=== PATIENT | female | born 1930 | race Caucasian/White ===

== ENCOUNTER 2016-11-10 07:58 | Inpatient (IN) | payer MEDICARE, BC ==
[~2016-11-10 07:58] MED LIST: Diphtheria,Pertussis(Acell),Tetanus Vaccine 0.5 ML SDV inactive IM ONE; Ketamine 500 mg/10 ML MDV ONE; Lactated Ringers 1,000 ML IV SCH; Lactated Ringers 1,000 ML ONE; Lidocaine 1%/Sod Bicarbonate in NS 8.4% 1 ML Syringe IV PRN; Midazolam 1 MG/ML 2 ML SDV ONE; Ondansetron 4 MG/2 ML SDV IVPUSH PRN; Phenylephrine/Normal Saline 100 MCG/ML 10 ML Syringe ONE; Pneumococcal 13-Valent Conjugate Vaccine 0.5 ML Syringe IM ONE; Propofol 200 MG/20 ML SDV ONE; Sodium Chloride 0.9% 10 ML Syringe FLUSH PRN; ceFAZolin 1 GM Vial ONE; fentaNYL 100 MCG/2 ML SDV ONE
--- NOTE | 2016-11-10 08:36 | PCM.PREANE ---
Preanesthetic Assessment - Anesthesia/Transfusion/Family Hx Anesthesia History: Prior Anesthesia Without Reaction Type of Anesthesia Reaction: Unknown Family History of Anesthesia Reaction: No Transfusion History: No Prior Transfusion(s) - Review of Systems General: No Symptoms Pulmonary: No Symptoms Cardiovascular: No Symptoms (HTN, mod aortic stenosis valve area 1.07cm2 ) Gastrointestinal: Abdominal pain (intermittent for the last 2 years but "they cant find anything". "Its more of an itch than anything") Neurological: Syncope (last episode was 5-6 years ago due to blood pressure variations ) Other: Reports: Easy Bleeding - Physical Assessment NPO Status Date: 11/09/16 NPO Status Time: 23:00 Pulse: 73 O2 Sat by Pulse Oximetry: 98 Respiratory Rate: 16 Blood Pressure: 181/85 Temperature: 36.8 C Height: 1.57 m Weight: 62.142 kg ASA Class: 3 Mental Status: Alert & Oriented x3 Airway Class: Mallampati = 3 Dentition: Reports: Normal Dentition (pt has a removable retainer, has TMJ, hx of broken jaw ) Thyro-Mental Finger Breadths: 3 Mouth Opening Finger Breadths: 2 ROM/Head Extension: Full Lungs: Clear to auscultation, Normal respiratory effort Cardiovascular: Regular Rate, Regular Rhythm, Murmurs - Lab Values: Laboratory Last Values MRSA (PCR) Negative 10/24/16 11:25 - Allergies Allergies/Adverse Reactions: Allergies Allergy/AdvReac Type Severity Reaction Status Date / Time No Known Allergies Allergy Verified 11/06/16 15:14 - Blood Blood Available: No Product(s) Available: None - Anesthesia Plan Pre-Op Medication Ordered: None - Acknowledgements Anesthesia Type Planned: Spinal (with duramorph discussed ) Pt an Appropriate Candidate for the Planned Anesthesia: Yes Alternatives and Risks of Anesthesia Discussed w Pt/Guardian: Yes Pt/Guardian Understands and Agrees with Anesthesia Plan: Yes PreAnesthesia Questionnaire HEENT History: Reports: Impaired vision, Other (see below) Other HEENT History: wears glasses Cardiovascular History: Reports: Heart murmur (mod aortic stenosis- valve area 1.07cm2), Hypertension Other Cardiovascular History: aortic stenosis Respiratory History: Reports: Other (see below) Other Respiratory History: shortness of breath with activity Genitourinary History: Reports: Other (see below) Other Genitourinary History: urgency SR. MEDIA MANAGER History: Reports: None Musculoskeletal History: Reports: Osteoarthritis Neurological History: Reports: None Psychiatric History: Reports: None Endocrine/Metabolic History: Reports: None Hematologic History: Reports: None Immunologic History: Reports: None Oncologic (Cancer) History: Reports: None Dermatologic History: Reports: None - Past Surgical History Head Surgeries/Procedures: Reports: None HEENT Surgical History: Reports: Other (see below) Other HEENT Surgeries/Procedures: mandible fracture with jaw surgery GI Surgical History: Reports: Colonoscopy, EGD Musculoskeletal Surgical History: Reports: Other (see below) Other Musculoskeletal Surgeries/Procedures:: mandible fracture with surgery - SUBSTANCE USE Smoking Status *Q: Never Smoker Second Hand Smoke Exposure: No Recreational Drug Use History: No - HOME MEDS Home Medications: Home Meds Ascorbate Calcium [Vitamin C] 500 mg PO DAILY 11/06/16 [History] Aspirin 81 mg PO DAILY 11/06/16 [History] Calcium Carbonate/Vitamin D3 [Calcium 500 + Vit D Caplet] 1 tab PO DAILY [History] Flaxseed Oil 1,000 mg PO DAILY 11/06/16 [History] Gluc 2KCl/Chondr/Kassy Hy/Hy Ac [Glucosamine & Chondroitin Cap] 1 cap PO DAILY [History] Losartan [Cozaar] 25 mg PO DAILY 11/06/16 [History] Melatonin 3 mg PO BEDTIME PRN 11/06/16 [History] Multivitamin [Multi-Vitamin Daily] 1 tab PO DAILY 11/06/16 [History] Vit C/Vit E Ac/Lut/Mineral 1 [Prosight with Lutein] 1 cap PO DAILY 11/06/16 [ History] Vitamin E 400 mg PO DAILY 11/06/16 [History] - CURRENT (IN HOUSE) MEDS Current Meds: Current Medications Hydrocodone Bitart/Acetaminophen ([place] 325-5 Mg) 1 - 2 tab PO Q4H PRN PRN Reason: Pain Aspirin (Ecotrin) 325 mg PO BID [facility] Bisacodyl (Dulcolax) 5 mg PO DAILY PRN PRN Reason: Constipation Morphine Sulfate 8 mg/Epinephrine HCl 0.3 mg/Cefuroxime Sodium 750 mg/Ketorolac Tromethamine 30 mg/Sodium Chloride 27.9 ml 0 mg .XX ONETIME ONE Stop: 11/10/16 10:01 Docusate Sodium (Colace) 100 mg PO BID [facility] Lactated Ringer's (Ringers, Lactated) 1,000 mls @ 125 mls/hr IV ASDIRECTED [facility] Cefazolin Sodium/Dextrose 2 gm (/ Premix) 50 mls @ 100 mls/hr IV Q8H [facility] Stop: 11/11/16 08:29 Lidocaine/Sodium Bicarbonate (Buffered Lidocaine 1% In Ns 8.4%) 0.25 ml IV ONETIME PRN PRN Reason: Prior to IV Start Stop: 11/10/16 16:00 Magnesium Hydroxide (Milk Of Magnesia) 30 ml PO BID PRN PRN Reason: Constipation Morphine Sulfate (Morphine) 1 mg IVPUSH Q2H PRN PRN Reason: Breakthrough pain Multivitamins (Thera) 1 each PO WITHBREAKFAST [facility] Naloxone HCl (Narcan) 0.1 mg IVPUSH Q5M PRN PRN Reason: Oversedation Stop: 11/10/16 12:16 Ondansetron HCl (Zofran) 4 mg IVPUSH Q6H PRN PRN Reason: Nausea/Vomiting Senna (Senna) 8.6 mg PO BID PRN PRN Reason: Constipation Sodium Chloride (Saline Flush) 10 ml FLUSH ASDIRECTED PRN PRN Reason: Keep Vein Open Discontinued Medications Cefazolin Sodium (Ancef) Confirm Administered Dose 2 gm .ROUTE .STK-MED ONE Stop: 11/10/16 07:52 Diphtheria/Tetanus/Acell Pertussis (Boostrix) 0.5 ml IM .ONCE ONE Stop: 11/09/16 12:20 Fentanyl (Sublimaze) Confirm Administered Dose 100 mcg .ROUTE .STK-MED ONE Stop: 11/10/16 07:54 Lidocaine HCl (Xylocaine-Mpf 1%) Confirm Administered Dose 10 mls @ as directed .ROUTE .STK-MED ONE Stop: 11/10/16 07:52 Lactated Ringer's (Ringers, Lactated) Confirm Administered Dose 1,000 mls @ as directed .ROUTE .STK-MED ONE Stop: 11/10/16 07:52 Ketamine HCl (Ketalar) Confirm Administered Dose 500 mg .ROUTE .STK-MED ONE Stop: 11/10/16 07:54 Midazolam HCl (Versed 1 Mg/Ml) Confirm Administered Dose 2 mg .ROUTE .STK-MED ONE Stop: 11/10/16 07:54 Phenylephrine HCl (Phenylephrine In Ns 100 Mcg/Ml) Confirm Administered Dose 1 mg .ROUTE .STK-MED ONE Stop: 11/10/16 07:52 Pneumococcal 13-Valent Conj Vacc (Prevnar 13) 0.5 ml IM .ONCE ONE Stop: 11/09/16 12:21 Propofol (Diprivan 20 Ml) Confirm Administered Dose 400 mg .ROUTE .STK-MED ONE Stop: 11/10/16 07:52
[2016-11-10] MEDS ORDERED: Ondansetron 4 MG/2 ML SDV IVPUSH PRN (10:34)
[2016-11-10] MEDS ORDERED: ePHEDrine 50 MG/ML SDV IVPUSH PRN (10:34)
[2016-11-10] MEDS: Iodine/Sodium Iodide 2% Tincture 30 ML Bottle ONE ×2 (10:36→11:03)
[2016-11-10] MEDS: ceFAZolin 1 GM Vial ONE ×2 (10:36→11:05)
[2016-11-10] MEDS: Bupivacaine 0.25% 30 ML SDV ONE ×2 (10:37→11:10)
[2016-11-10] MEDS: Morphine 8 MG, EPINEPHrine 0.3 MG, Cefuroxime 750 MG, Ketorolac 30 MG, Sodium Chloride ... ONE ×15 (10:37→17:00)
[2016-11-10] MEDS ORDERED: Phenylephrine 1 MG in Sodium Chloride 0.9% 10 ML IV SCH (10:45)
[2016-11-10] MEDS ORDERED: ePHEDrine/Normal Saline 25 MG/5 ML Syringe ONE (11:13)
[2016-11-10] MEDS ORDERED: fentaNYL 100 MCG/2 ML SDV IVPUSH PRN (11:40)
[2016-11-10] MEDS ORDERED: HYDROmorphone 0.5 MG/0.5 ML Syringe IVPUSH PRN (11:40)
--- NOTE | 2016-11-10 11:56 | PCM.POSTAN ---
POST ANESTHESIA ASSESSMENT - MENTAL STATUS Mental Status: alert - VITAL SIGNS Pulse Rate: 80 SaO2: 97 Resp Rate: 14 Blood Pressure: 146/57 Temperature: 36.9 C - RESPIRATORY Respiratory Status: respiratory rate WNL, airway patent, O2 saturation stable, supplemental oxygen - CARDIOVASCULAR CV Status: pulse rate WNL, blood pressure stable - GASTROINTESTINAL GI Status: no symptoms - POST OP HYDRATION Hydration Status: adequate & stable
[2016-11-10] MEDS ORDERED: Morphine 2 MG/ML Syringe IVPUSH PRN (12:00)
[2016-11-10] MEDS ORDERED: Naloxone 0.4 MG/ML SDV IVPUSH PRN (12:00)
--- NOTE | 2016-11-10 12:49 | CR ---
Left knee: AP and lateral views of left knee were obtained. Comparison: No previous knee surgery. Knee prosthesis is identified. Components are aligned. Air noted within joints and soft tissues compatible with surgical procedure. Vascular calcification is noted. Underlying bony structures are intact. Impression: 1. Satisfactory radiographic appearance of recently placed left knee prosthesis. Diagnostic code #2
--- NOTE | 2016-11-10 14:05 | PCM.OPNOTE ---
- General Post-Op/Procedure Note Date of Surgery/Procedure: 11/10/16 Operative Procedure(s): left total knee arthroplasty Pre Op Diagnosis: left knee osteoarthrosis Post-Op Diagnosis: Same Anesthesia Technique: Local, MAC, Spinal Primary Surgeon: Leif Serra Anesthesia Provider: Fab Le Flooring Salesperson: July Copeland Flooring Salesperson: Carolyn Maldonado EBL in mLs: 200 Complications: None Condition: Good Free Text/Narrative:: Intake & Output 11/09/16 11/10/16 11/10/16 22:59 06:59 14:59 Intake Total 40 Output Total 850 Balance -810 5 femur 4 tibia 9mm 29x9
[2016-11-10] MEDS ORDERED: Scopolamine 1.5 MG Transdermal Patch TRDERM SCH (15:00)
[2016-11-10] MEDS: ceFAZolin 2 GM in Premix Bag 1 BAG IV SCH ×2 (16:03→23:08)
[2016-11-10] MEDS: Prochlorperazine 10 MG/2 ML SDV IVPUSH SCH ×2 (16:04→20:15)
--- NOTE | 2016-11-10 16:35 | PCM.CONSN ---
[id number] had osteoarthritis which has limited her function is s/p left total knee arthroplasty. PMH includes moderate-severe , hypertension, COPD. Post op she has had nausea with vomiting. Functional Status: Reports: pain controlled, tolerating diet (minimal, has had frequent emesis), urinating - Review of Systems General: Reports: No Symptoms HEENT: Reports: no symptoms Pulmonary: Reports: no symptoms Cardiovascular: Reports: No Symptoms Gastrointestinal: Reports: No symptoms Genitourinary: Reports: no symptoms Musculoskeletal: Reports: no symptoms Skin: Reports: no symptoms Neurological: Reports: No Symptoms Psychiatric: Reports: no symptoms - Patient Data Vitals - most recent: Last Vital Signs Temp 36.7 C 11/10/16 12:11 Pulse 61 11/10/16 12:55 Resp 13 11/10/16 12:55 BP 141/56 H 11/10/16 12:55 Pulse Ox 93 L 11/10/16 13:25 Weight - most recent: 64.41 kg I&O - last 24 hours: Intake & Output 11/10/16 11/10/16 11/10/16 06:59 14:59 22:59 Intake Total 40 Output Total 850 Balance -810 Med Orders - Current: Current Medications Hydrocodone Bitart/Acetaminophen ([place] 325-5 Mg) 1 - 2 tab PO Q4H PRN PRN Reason: Pain Aspirin (Ecotrin) 325 mg PO BID [facility] Bisacodyl (Dulcolax) 5 mg PO DAILY PRN PRN Reason: Constipation Calcium Carbonate (Calcium Carbonate/Vitamin D 1500 Mg-200 Unit) 1 tab PO DAILY [facility] Docusate Sodium (Colace) 100 mg PO BID [facility] Cefazolin Sodium/Dextrose 2 gm (/ Premix) 50 mls @ 100 mls/hr IV Q8H [facility] Stop: 11/11/16 08:29 Last Admin: 11/10/16 16:03 Dose: 100 mls/hr Losartan Potassium (Cozaar) 25 mg PO DAILY [facility] Magnesium Hydroxide (Milk Of Magnesia) 30 ml PO BID PRN PRN Reason: Constipation Miscellaneous Information (Remove Patch) 0 ea TRDERM Q72H [facility] Morphine Sulfate (Morphine) 1 mg IVPUSH Q2H PRN PRN Reason: Breakthrough pain Multivitamins (Thera) 1 each PO WITHBREAKFAST [facility] Ondansetron HCl (Zofran) 4 mg IVPUSH Q6H PRN PRN Reason: Nausea/Vomiting Last Admin: 11/10/16 13:35 Dose: 4 mg Ondansetron HCl (Zofran) 4 mg IVPUSH ONETIME PRN PRN Reason: Nausea/Vomiting Stop: 11/10/16 18:00 Melatonin 3 Mg 0 each PO BEDTIME PRN PRN Reason: Insomnia Prochlorperazine Edisylate (Compazine) 5 mg IVPUSH Q6H [facility] Last Admin: 11/10/16 16:04 Dose: 5 mg Scopolamine (Transderm-Scop) 1.5 mg TRDERM Q72H [facility] Last Admin: 11/10/16 16:05 Dose: 1.5 mg Senna (Senna) 8.6 mg PO BID PRN PRN Reason: Constipation Sodium Chloride (Saline Flush) 10 ml FLUSH ASDIRECTED PRN PRN Reason: Keep Vein Open Discontinued Medications Bupivacaine HCl (Marcaine 0.25%) Confirm Administered Dose 30 ml .ROUTE .STK- MED ONE Stop: 11/10/16 08:22 Last Admin: 11/10/16 11:10 Dose: 30 ml Cefazolin Sodium (Ancef) Confirm Administered Dose 2 gm .ROUTE .STK-MED ONE Stop: 11/10/16 07:52 Cefazolin Sodium (Ancef) Confirm Administered Dose 2 gm .ROUTE .STK-MED ONE Stop: 11/10/16 08:22 Last Admin: 11/10/16 11:05 Dose: 2 gm Morphine Sulfate 8 mg/Epinephrine HCl 0.3 mg/Cefuroxime Sodium 750 mg/Ketorolac Tromethamine 30 mg/Sodium Chloride 27.9 ml 0 mg .XX ONETIME ONE Stop: 11/10/16 10:01 Last Admin: 11/10/16 11:09 Dose: 788.3 mg Diphtheria/Tetanus/Acell Pertussis (Boostrix) 0.5 ml IM .ONCE ONE Stop: 11/09/16 12:20 Ephedrine Sulfate (Ephedrine Sulfate) 5 mg IVPUSH ASDIRECTED PRN PRN Reason: Hypotension Stop: 11/10/16 18:00 Ephedrine Sulfate (Ephedrine In Ns) Confirm Administered Dose 25 mg .ROUTE .STK- MED ONE Stop: 11/10/16 11:14 Fentanyl (Sublimaze) Confirm Administered Dose 100 mcg .ROUTE .STK-MED ONE Stop: 11/10/16 07:54 Fentanyl (Sublimaze) 50 mcg IVPUSH Q5M PRN PRN Reason: Pain Stop: 11/10/16 11:56 Hydromorphone HCl (Dilaudid) 0.5 mg IVPUSH Q15M PRN PRN Reason: severe pain Stop: 11/10/16 11:56 Last Admin: 11/10/16 12:56 Dose: 0.5 mg Lactated Ringer's (Ringers, Lactated) 1,000 mls @ 125 mls/hr IV ASDIRECTED [facility] Last Admin: 11/10/16 08:50 Dose: 125 mls/hr Lidocaine HCl (Xylocaine-Mpf 1%) Confirm Administered Dose 10 mls @ as directed .ROUTE .STK-MED ONE Stop: 11/10/16 07:52 Lactated Ringer's (Ringers, Lactated) Confirm Administered Dose 1,000 mls @ as directed .ROUTE .STK-MED ONE Stop: 11/10/16 07:52 Phenylephrine HCl 1 mg/ Sodium (Chloride) 10.1 mls @ 1 mls/sec IV TITRATE [facility] Stop: 11/10/16 18:00 Iodine (Iodine 2% Mild Tincture) Confirm Administered Dose 30 ml .ROUTE .STK- MED ONE Stop: 11/10/16 08:22 Last Admin: 11/10/16 11:03 Dose: 18 ml Ketamine HCl (Ketalar) Confirm Administered Dose 500 mg .ROUTE .STK-MED ONE Stop: 11/10/16 07:54 Lidocaine/Sodium Bicarbonate (Buffered Lidocaine 1% In Ns 8.4%) 0.25 ml IV ONETIME PRN PRN Reason: Prior to IV Start Stop: 11/10/16 16:00 Last Admin: 11/10/16 08:49 Dose: 0.25 ml Midazolam HCl (Versed 1 Mg/Ml) Confirm Administered Dose 2 mg .ROUTE .STK-MED ONE Stop: 11/10/16 07:54 Naloxone HCl (Narcan) 0.1 mg IVPUSH Q5M PRN PRN Reason: Oversedation Stop: 11/10/16 12:16 Phenylephrine HCl (Phenylephrine In Ns 100 Mcg/Ml) Confirm Administered Dose 1 mg .ROUTE .STK-MED ONE Stop: 11/10/16 07:52 Pneumococcal 13-Valent Conj Vacc (Prevnar 13) 0.5 ml IM .ONCE ONE Stop: 11/09/16 12:21 Propofol (Diprivan 20 Ml) Confirm Administered Dose 400 mg .ROUTE .STK-MED ONE Stop: 11/10/16 07:52 Tranexamic Acid (Cyklokapron) Confirm Administered Dose 1,000 mg .ROUTE .STK- MED ONE Stop: 11/10/16 08:22 Last Admin: 11/10/16 11:14 Dose: 1,000 mg - Exam Quality Assessment: urine catheter, DVT prophylaxis General: alert, oriented, cooperative, no acute distress HEENT: Pupils equal, Pupils reactive, EOMI Neck: supple, trachea midline Lungs: Normal respiratory effort Cardiovascular: Regular Rate, Regular Rhythm, Murmurs (ANASTASIYA) Abdomen: bowel sounds present, soft, no tenderness, no distension (Female) Exam: Deferred Back Exam: normal inspection Extremities: normal pulses Skin: warm Wound/Incisions: dressing dry and intact Neurological: no new focal deficit Psy/Mental Status: alert Consult PN Assessment/Plan POD#: 0 Procedures: Procedures COMPLETE CBC W/AUTO DIFF WBC (08/08/15) COMPREHEN METABOLIC PANEL (08/08/15) CT ABD & PELV W/CONTRAST (07/13/15) ECG MONIT/REPRT UP TO 48 HRS (09/04/15) ECG MONIT/REPRT UP TO 48 HRS (09/04/15) ELECTROCARDIOGRAM TRACING (08/08/15) EMERGENCY DEPT VISIT (08/08/15) ROUTINE VENIPUNCTURE (08/08/15) Problem List Initiated/Reviewed/Updated: Yes My Orders last 24 hours: My Active Orders 11/10/16 15:00 Prochlorperazine [Compazine] 5 mg IVPUSH Q6H Scopolamine [Transderm-Scop] 1.5 mg TRDERM Q72H 11/13/16 15:00 Remove Patch 0 ea TRDERM Q72H Plan: Impression: Post op Left TKA History of OA Chronic HTN Plan: Pain mgt per Ortho DVT prophylaxis per Ortho Antiemetic Clear Liquids Resume home meds PT/OT post op care
[2016-11-10] MEDS ORDERED: Sodium Chloride 0.9% 1,000 ML IV SCH (17:00)
[2016-11-10] MEDS: Docusate Sodium 100 MG Cap PO SCH (20:16)
[2016-11-10] MEDS: Acetaminophen/HYDROcodone 325-5 MG Tab PO PRN ×2 (20:16→23:08)
[2016-11-10] MEDS ORDERED: Magnesium Hydroxide 400 MG/5 ML Susp 30 ML Cup PO PRN (21:00)
[2016-11-10] MEDS ORDERED: Sennosides 8.6 MG Tab PO PRN (21:00)
--- NOTE | 2016-11-10 21:18 | OR ---
DATE OF OPERATION: 11/10/2016 SURGEON: Leif Serra MD OPERATION PERFORMED: Left total knee arthroplasty. PREOPERATIVE DIAGNOSIS: Left knee osteoarthrosis. POSTOPERATIVE DIAGNOSIS: Left knee osteoarthrosis. ANESTHESIA: Local MAC with spinal. ANESTHESIA PROVIDER: Fab Le. LEAD SYSTEMS ENGINEER: July Copeland PA-C and Carolyn Maldonado M.D. ESTIMATED BLOOD LOSS: 200 mL COMPLICATIONS: None. CONDITION: Stable. IMPLANTS: 1. [place] size 5 PS femur. 2. Rl size 4 universal tibial baseplate. 3. [place] size 4 9 mm X3 PS polyethylene. 4. Rl 29 x 9 mm asymmetric patella. DESCRIPTION OF PROCEDURE: The patient was identified in the preop holding area. Proper site was marked and identified by the surgeon. The patient was taken back to the operating theater. After adequate anesthesia, the patient's left lower extremity had a nonsterile tourniquet applied and it was then sterilely prepped and draped in the usual sterile fashion. OR timeout was performed. The patient received 2 g IV Ancef. At this time, left lower extremity was exsanguinated. Tourniquet was insufflated to 300 mmHg. Standard medial parapatellar incision was made. Medial parapatellar arthrotomy was created. Deep fibers of the MCL were raised and anterior fat pad was resected. At this time, attention was turned to the patella. Patella measured 23, it was resected to a 14 for a 29 x 9 mm patella. Drill holes were then drilled and found to be in adequate position. The drill was then drilled in the distal femur and the intramedullary distal femoral cutting guide was then placed. 8 mm was resected off the distal femur and was found to be an adequate resection. Sizing guide was placed. It was found to be a size femur that was shown on the implant record at the beginning of this dictation. The drill holes were drilled for the epicondylar axis using [place] line and epicondyles as reference. At this time, the 4-in-1 cutting block was placed. An anterior posterior and anterior and posterior chamfer cuts were then completed. The correct size box cut was then placed and the box cut was completed and found to be an adequate resection. Attention was turned to the tibia. The posterior medial lateral retractors were placed. The extramedullary tibial guide was placed. It was placed in the old footprint of the ACL. It was aligned with the center of the ankle and 0 degrees of slope, 9 mm was then resected off the unaffected lateral side. There was found to be an acceptable reduction. At this time, posterior osteophytes were removed along with medial and lateral meniscus. A trial implant was placed with a correct sized tibia that was mentioned at the beginning of the dictation. A 9 mm polyethylene was then placed. The patient's knee was brought through range of motion. The patella was tracking centrally and was stable to varus and valgus stress. Alignment was found to be roughly at 0 degrees. At this time, cement was mixed on the back table. The tibia was stamped and drilled in proper rotation. All cut surfaces were irrigated with pulse lavage irrigation with Ancef and then completely dried. Once this was completed, then the cement was ready. The universal tibial base plate was cemented in place. Next, the femur cemented into place and the polyethylene was placed. The patient's knee was brought into full extension. Excess cement was removed. The patella was then cemented in place at this time. Tourniquet was deflated. One liter dilute Betadine solution was irrigated through the knee along with 3 L of pulse lavage irrigation with Ancef. Periarticular injection was then completed. The patient's knee was brought through a range of motion. Once the cement had time to set up and it was found to be stable to varus valgus stress, the patella was tracking centrally with full range of motion. At this time, a #2 barbed suture was used for closure of the medial parapatellar arthrotomy. Topical tranexamic acid was placed. 2-0 Vicryl was used subcutaneously, a running 3-0 Monocryl was used subcuticularly. The patient tolerated the procedure well and was sent to the PACU in stable condition. A 9 mm trial spacer was placed and 9 mm X3 polyethylene was placed. OSCAR /[id number]
[2016-11-11] MEDS: Prochlorperazine 10 MG/2 ML SDV IVPUSH SCH ×3 (02:31→14:18)
[2016-11-11] MEDS: Acetaminophen/HYDROcodone 325-5 MG Tab PO PRN ×2 (06:13→16:56)
[2016-11-11] MEDS: Multivitamins,Therapeutic Tab PO SCH (06:13)
--- NOTE | 2016-11-11 06:22 | PCM.CONSN ---
[id number] Admission Dx/Problem (Free Text): S/P Lt TKA with Dr. Serra; POD #1 Episode of hypotension wtih standing earlier this am; b/p to 70's/30's- nursing phoned me; orders given. Now patient doing better, b/p back up to 130's/60's; still feels dizzy. Reviewed with nursing and family POC for the day- PT will be updated on episode. Denies CP, SOB with this. N/V yesterday improved today; did have mild nausea with hypotension as discussed above, resolved now. Pain under fair to good control now Hgb WNL; other labs WNL this am. Functional Status: Reports: pain controlled, tolerating diet, ambulating, urinating (baker cath to be dc'd early this am). Denies: new symptoms - Review of Systems General: Reports: No Symptoms HEENT: Reports: no symptoms Pulmonary: Reports: no symptoms Cardiovascular: Reports: Lightheadedness, Other (hypotensive episode) Gastrointestinal: Reports: No symptoms Genitourinary: Reports: no symptoms Musculoskeletal: Reports: leg pain Skin: Reports: no symptoms Neurological: Reports: No Symptoms Psychiatric: Reports: no symptoms - Patient Data Vitals - most recent: Last Vital Signs Temp 97.7 F 11/11/16 02:02 Pulse 61 11/11/16 02:02 Resp 16 11/11/16 02:02 BP 157/50 H 11/11/16 02:02 Pulse Ox 97 11/11/16 02:02 Weight - most recent: 69.672 kg I&O - last 24 hours: Intake & Output 11/10/16 11/10/16 11/11/16 14:59 22:59 06:59 Intake Total 40 300 350 Output Total 850 50 250 Balance -810 250 100 Med Orders - Current: Current Medications Hydrocodone Bitart/Acetaminophen ([place] 325-5 Mg) 1 - 2 tab PO Q4H PRN PRN Reason: Pain Last Admin: 11/11/16 06:13 Dose: 2 tab Aspirin (Ecotrin) 325 mg PO BID [facility] Bisacodyl (Dulcolax) 5 mg PO DAILY PRN PRN Reason: Constipation Calcium Carbonate (Calcium Carbonate/Vitamin D 1500 Mg-200 Unit) 1 tab PO DAILY [facility] Docusate Sodium (Colace) 100 mg PO BID EMMA Last Admin: 11/10/16 20:16 Dose: 100 mg Cefazolin Sodium/Dextrose 2 gm (/ Premix) 50 mls @ 100 mls/hr IV Q8H [facility] Stop: 11/11/16 08:29 Last Admin: 11/10/16 23:08 Dose: 100 mls/hr Losartan Potassium (Cozaar) 25 mg PO DAILY [facility] Magnesium Hydroxide (Milk Of Magnesia) 30 ml PO BID PRN PRN Reason: Constipation Miscellaneous Information (Remove Patch) 0 ea TRDERM Q72H [facility] Morphine Sulfate (Morphine) 1 mg IVPUSH Q2H PRN PRN Reason: Breakthrough pain Multivitamins (Thera) 1 each PO WITHBREAKFAST [facility] Last Admin: 11/11/16 06:13 Dose: 1 each Ondansetron HCl (Zofran) 4 mg IVPUSH Q6H PRN PRN Reason: Nausea/Vomiting Last Admin: 11/10/16 13:35 Dose: 4 mg Melatonin 3 Mg 0 each PO BEDTIME PRN PRN Reason: Insomnia Prochlorperazine Edisylate (Compazine) 5 mg IVPUSH Q6H [facility] Last Admin: 11/11/16 02:31 Dose: 5 mg Scopolamine (Transderm-Scop) 1.5 mg TRDERM Q72H [facility] Last Admin: 11/10/16 16:05 Dose: 1.5 mg Senna (Senna) 8.6 mg PO BID PRN PRN Reason: Constipation Sodium Chloride (Saline Flush) 10 ml FLUSH ASDIRECTED PRN PRN Reason: Keep Vein Open Discontinued Medications Bupivacaine HCl (Marcaine 0.25%) Confirm Administered Dose 30 ml .ROUTE .STK- MED ONE Stop: 11/10/16 08:22 Last Admin: 11/10/16 11:10 Dose: 30 ml Cefazolin Sodium (Ancef) Confirm Administered Dose 2 gm .ROUTE .STK-MED ONE Stop: 11/10/16 07:52 Cefazolin Sodium (Ancef) Confirm Administered Dose 2 gm .ROUTE .STK-MED ONE Stop: 11/10/16 08:22 Last Admin: 11/10/16 11:05 Dose: 2 gm Morphine Sulfate 8 mg/Epinephrine HCl 0.3 mg/Cefuroxime Sodium 750 mg/Ketorolac Tromethamine 30 mg/Sodium Chloride 27.9 ml 0 mg .XX ONETIME ONE Stop: 11/10/16 10:01 Last Admin: 11/10/16 17:00 Dose: Not Given Diphtheria/Tetanus/Acell Pertussis (Boostrix) 0.5 ml IM .ONCE ONE Stop: 11/09/16 12:20 Ephedrine Sulfate (Ephedrine Sulfate) 5 mg IVPUSH ASDIRECTED PRN PRN Reason: Hypotension Stop: 11/10/16 18:00 Ephedrine Sulfate (Ephedrine In Ns) Confirm Administered Dose 25 mg .ROUTE .STK- MED ONE Stop: 11/10/16 11:14 Fentanyl (Sublimaze) Confirm Administered Dose 100 mcg .ROUTE .STK-MED ONE Stop: 11/10/16 07:54 Fentanyl (Sublimaze) 50 mcg IVPUSH Q5M PRN PRN Reason: Pain Stop: 11/10/16 11:56 Hydromorphone HCl (Dilaudid) 0.5 mg IVPUSH Q15M PRN PRN Reason: severe pain Stop: 11/10/16 11:56 Last Admin: 11/10/16 12:56 Dose: 0.5 mg Lactated Ringer's (Ringers, Lactated) 1,000 mls @ 125 mls/hr IV ASDIRECTED [facility] Last Admin: 11/10/16 08:50 Dose: 125 mls/hr Lidocaine HCl (Xylocaine-Mpf 1%) Confirm Administered Dose 10 mls @ as directed .ROUTE .STK-MED ONE Stop: 11/10/16 07:52 Lactated Ringer's (Ringers, Lactated) Confirm Administered Dose 1,000 mls @ as directed .ROUTE .STK-MED ONE Stop: 11/10/16 07:52 Phenylephrine HCl 1 mg/ Sodium (Chloride) 10.1 mls @ 1 mls/sec IV TITRATE [facility] Stop: 11/10/16 18:00 Sodium Chloride (Normal Saline) 1,000 mls @ 50 mls/hr IV ASDIRECTED [facility] Stop: 11/10/16 23:00 Last Admin: 11/10/16 17:13 Dose: 50 mls/hr Iodine (Iodine 2% Mild Tincture) Confirm Administered Dose 30 ml .ROUTE .STK- MED ONE Stop: 11/10/16 08:22 Last Admin: 11/10/16 11:03 Dose: 18 ml Ketamine HCl (Ketalar) Confirm Administered Dose 500 mg .ROUTE .STK-MED ONE Stop: 11/10/16 07:54 Lidocaine/Sodium Bicarbonate (Buffered Lidocaine 1% In Ns 8.4%) 0.25 ml IV ONETIME PRN PRN Reason: Prior to IV Start Stop: 11/10/16 16:00 Last Admin: 11/10/16 08:49 Dose: 0.25 ml Midazolam HCl (Versed 1 Mg/Ml) Confirm Administered Dose 2 mg .ROUTE .STK-MED ONE Stop: 11/10/16 07:54 Naloxone HCl (Narcan) 0.1 mg IVPUSH Q5M PRN PRN Reason: Oversedation Stop: 11/10/16 12:16 Ondansetron HCl (Zofran) 4 mg IVPUSH ONETIME PRN PRN Reason: Nausea/Vomiting Stop: 11/10/16 18:00 Phenylephrine HCl (Phenylephrine In Ns 100 Mcg/Ml) Confirm Administered Dose 1 mg .ROUTE .STK-MED ONE Stop: 11/10/16 07:52 Pneumococcal 13-Valent Conj Vacc (Prevnar 13) 0.5 ml IM .ONCE ONE Stop: 11/09/16 12:21 Propofol (Diprivan 20 Ml) Confirm Administered Dose 400 mg .ROUTE .STK-MED ONE Stop: 11/10/16 07:52 Tranexamic Acid (Cyklokapron) Confirm Administered Dose 1,000 mg .ROUTE .STK- MED ONE Stop: 11/10/16 08:22 Last Admin: 11/10/16 11:14 Dose: 1,000 mg - Exam Quality Assessment: supplemental oxygen, DVT prophylaxis General: alert, oriented, cooperative, no acute distress HEENT: Pupils equal, Pupils reactive, EOMI, Mucous membr. moist/pink Neck: supple Lungs: Clear to auscultation, Normal respiratory effort, Decreased breath sounds (to bases) Cardiovascular: Regular Rate, Regular Rhythm, Murmurs (grade 2-3 blowing systolic murmur) Abdomen: bowel sounds present, soft, no tenderness, no distension (Female) Exam: Deferred Extremities: no edema, other (teds, SCD's, ice to knee) Peripheral Pulses: 1+: dorsalis pedis (L), dorsalis pedis (R) Skin: warm, dry, intact Neurological: no new focal deficit Psy/Mental Status: alert, normal affect, normal mood Consult PN Assessment/Plan POD#: 1 Procedures: Procedures COMPLETE CBC W/AUTO DIFF WBC (08/08/15) COMPREHEN METABOLIC PANEL (08/08/15) CT ABD & PELV W/CONTRAST (07/13/15) ECG MONIT/REPRT UP TO 48 HRS (09/04/15) ECG MONIT/REPRT UP TO 48 HRS (09/04/15) ELECTROCARDIOGRAM TRACING (08/08/15) EMERGENCY DEPT VISIT (08/08/15) ROUTINE VENIPUNCTURE (08/08/15) (1) S/P total knee arthroplasty SNOMED Code(s): 1418665950147, 717563094, 7325221428389 Code(s): Z96.659 - PRESENCE OF UNSPECIFIED ARTIFICIAL KNEE JOINT Priority: High Current Visit: Yes Qualifiers: Laterality: left Qualified Code(s): Z96.652 - Presence of left artificial knee joint (2) Osteoarthritis SNOMED Code(s): 878422963 Code(s): M19.90 - UNSPECIFIED OSTEOARTHRITIS, UNSPECIFIED SITE Priority: High Current Visit: Yes Qualifiers: Osteoarthritis location: knee Osteoarthritis type: primary Laterality: left Qualified Code(s): M17.12 - Unilateral primary osteoarthritis, left knee (3) Aortic stenosis SNOMED Code(s): 58166283 Code(s): I35.0 - NONRHEUMATIC AORTIC (VALVE) STENOSIS Priority: High Current Visit: Yes Qualifiers: Cardiac valve disease etiology: etiology unspecified Qualified Code(s): I35.0 - Nonrheumatic aortic (valve) stenosis (4) HTN (hypertension) SNOMED Code(s): 76167115 Code(s): I10 - ESSENTIAL (PRIMARY) HYPERTENSION Priority: High Current Visit: Yes Qualifiers: Hypertension type: essential hypertension Qualified Code(s): I10 - Essential (primary) hypertension (5) Hypotensive episode SNOMED Code(s): 44010566 Code(s): I95.9 - HYPOTENSION, UNSPECIFIED Priority: High Current Visit: Yes Problem List Initiated/Reviewed/Updated: Yes Plan: S/P Rt TKA with Dr. Serra; POD #1 -Pain management and DVT prophylax per primary team/Ortho -PT/OT -Hgb this am 11.8 Hypotensive episode with dizziness/near syncope -250cc fluid bolus given -Close monitoring of b/p -Bed exercises only for PT this am, can attempt OOB this afternoon -Reviewed with Izabela Copeland PA-C with Ortho, decision made for patient to stay tonite, plan for dc tomorrow if no further hypotension Other chronic conditions: stable -HTN- B/P overnight had been elevated but acceptable, now with hypotension -Aortic stenosis; avoid fluid overload-- fluid bolus as above over 30 minutes Other: CM/SW for assist with DC planning Patient is Full Code Plan for DC tomorrow pending b/p's <LinJudith M - Last Filed: 11/11/16 19:50> - Patient Data Vitals - most recent: Last Vital Signs Temp 36.6 C 11/11/16 19:25 Pulse 70 11/11/16 19:25 Resp 16 11/11/16 19:25 BP 142/98 H 11/11/16 19:25 Pulse Ox 94 L 11/11/16 19:25 I&O - last 24 hours: Intake & Output 11/11/16 11/11/16 11/11/16 06:59 14:59 22:59 Intake Total 350 680 Output Total 250 410 Balance 100 270 Lab Results last 24 hrs: Laboratory Results - last 24 hr 11/11/16 11/11/16 Range/Units 06:20 06:20 WBC 6.08 (3.98-10.04) K/mm3 RBC 3.79 L (3.98-5.22) M/mm3 Hgb 11.8 (11.2-15.7) gm/L Hct 37.4 (34.1-44.9) % MCV 98.7 H (79.4-94.8) fl MCH 31.1 (25.6-32.2) pg MCHC 31.6 L (32.2-35.5) g/dl RDW Std Deviation 46.4 H (36.4-46.3) fL Plt Count 202 (182-369) K/mm3 MPV 11.2 (9.4-12.3) fl Neut % (Auto) 60.8 (34.0-71.1) % Lymph % (Auto) 27.6 (19.3-51.7) % Reagan % (Auto) 10.2 (4.7-12.5) % Eos % (Auto) 1.0 (0.7-5.8) Baso % (Auto) 0.2 (0.1-1.2) % Neut # (Auto) 3.70 (1.56-6.13) K/mm3 Lymph # (Auto) 1.68 (1.18-3.74) K/mm3 Reagan # (Auto) 0.62 H (0.24-0.36) K/mm3 Eos # (Auto) 0.06 (0.04-0.36) K/mm3 Baso # (Auto) 0.01 (0.01-0.08) K/mm3 Sodium 144 (136-145) mEq/L Potassium 4.7 (3.5-5.1) mEq/L Chloride 109 H (98-107) mEq/L Carbon Dioxide 31 (21-32) mEq/L Anion Gap 8.7 (5-15) BUN 17 (7-18) mg/dL Creatinine 1.0 (0.55-1.02) mg/dL Est Cr Clr Drug Dosing 33.41 mL/min Estimated GFR (MDRD) 53 (>60) mL/min BUN/Creatinine Ratio 17.0 (14-18) Glucose 99 (83-115) mg/dL Calcium 8.6 (8.5-10.1) mg/dL Total Bilirubin 0.5 (0.2-1.0) mg/dL AST 18 (15-37) U/L ALT 23 (14-59) U/L Alkaline Phosphatase 86 (46-116) U/L Total Protein 6.0 L (6.4-8.2) g/dl Albumin 2.9 L (3.4-5.0) g/dl Globulin 3.1 gm/dL Albumin/Globulin Ratio 0.9 L (1-2) Med Orders - Current: Current Medications Hydrocodone Bitart/Acetaminophen ([place] 325-5 Mg) 1 - 2 tab PO Q4H PRN PRN Reason: Pain Last Admin: 11/11/16 16:56 Dose: 2 tab Aspirin (Ecotrin) 325 mg PO BID [facility] Last Admin: 11/11/16 08:07 Dose: 325 mg Bisacodyl (Dulcolax) 5 mg PO DAILY PRN PRN Reason: Constipation Last Admin: 11/11/16 08:08 Dose: 5 mg Calcium Carbonate (Calcium Carbonate/Vitamin D 1500 Mg-200 Unit) 1 tab PO DAILY [facility] Last Admin: 11/11/16 08:08 Dose: 1 tab Docusate Sodium (Colace) 100 mg PO BID [facility] Last Admin: 11/11/16 08:08 Dose: 100 mg Losartan Potassium (Cozaar) 25 mg PO DAILY [facility] Last Admin: 11/11/16 08:08 Dose: 25 mg Magnesium Hydroxide (Milk Of Magnesia) 30 ml PO BID PRN PRN Reason: Constipation Miscellaneous Information (Remove Patch) 0 ea TRDERM Q72H [facility] Morphine Sulfate (Morphine) 1 mg IVPUSH Q2H PRN PRN Reason: Breakthrough pain Multivitamins (Thera) 1 each PO WITHBREAKFAST [facility] Last Admin: 11/11/16 06:13 Dose: 1 each Ondansetron HCl (Zofran) 4 mg IVPUSH Q6H PRN PRN Reason: Nausea/Vomiting Last Admin: 11/10/16 13:35 Dose: 4 mg Melatonin 3 Mg 0 each PO BEDTIME PRN PRN Reason: Insomnia Scopolamine (Transderm-Scop) 1.5 mg TRDERM Q72H [facility] Last Admin: 11/10/16 16:05 Dose: 1.5 mg Senna (Senna) 8.6 mg PO BID PRN PRN Reason: Constipation Sodium Chloride (Saline Flush) 10 ml FLUSH ASDIRECTED PRN PRN Reason: Keep Vein Open Discontinued Medications Bupivacaine HCl (Marcaine 0.25%) Confirm Administered Dose 30 ml .ROUTE .STK- MED ONE Stop: 11/10/16 08:22 Last Admin: 11/10/16 11:10 Dose: 30 ml Cefazolin Sodium (Ancef) Confirm Administered Dose 2 gm .ROUTE .STK-MED ONE Stop: 11/10/16 07:52 Cefazolin Sodium (Ancef) Confirm Administered Dose 2 gm .ROUTE .STK-MED ONE Stop: 11/10/16 08:22 Last Admin: 11/10/16 11:05 Dose: 2 gm Morphine Sulfate 8 mg/Epinephrine HCl 0.3 mg/Cefuroxime Sodium 750 mg/Ketorolac Tromethamine 30 mg/Sodium Chloride 27.9 ml 0 mg .XX ONETIME ONE Stop: 11/10/16 10:01 Last Admin: 11/10/16 17:00 Dose: Not Given Diphtheria/Tetanus/Acell Pertussis (Boostrix) 0.5 ml IM .ONCE ONE Stop: 11/09/16 12:20 Ephedrine Sulfate (Ephedrine Sulfate) 5 mg IVPUSH ASDIRECTED PRN PRN Reason: Hypotension Stop: 11/10/16 18:00 Ephedrine Sulfate (Ephedrine In Ns) Confirm Administered Dose 25 mg .ROUTE .STK- MED ONE Stop: 11/10/16 11:14 Fentanyl (Sublimaze) Confirm Administered Dose 100 mcg .ROUTE .STK-MED ONE Stop: 11/10/16 07:54 Fentanyl (Sublimaze) 50 mcg IVPUSH Q5M PRN PRN Reason: Pain Stop: 11/10/16 11:56 Hydromorphone HCl (Dilaudid) 0.5 mg IVPUSH Q15M PRN PRN Reason: severe pain Stop: 11/10/16 11:56 Last Admin: 11/10/16 12:56 Dose: 0.5 mg Lactated Ringer's (Ringers, Lactated) 1,000 mls @ 125 mls/hr IV ASDIRECTED [facility] Last Admin: 11/10/16 08:50 Dose: 125 mls/hr Cefazolin Sodium/Dextrose 2 gm (/ Premix) 50 mls @ 100 mls/hr IV Q8H [facility] Stop: 11/11/16 08:29 Last Admin: 11/11/16 08:07 Dose: 100 mls/hr Lidocaine HCl (Xylocaine-Mpf 1%) Confirm Administered Dose 10 mls @ as directed .ROUTE .STK-MED ONE Stop: 11/10/16 07:52 Lactated Ringer's (Ringers, Lactated) Confirm Administered Dose 1,000 mls @ as directed .ROUTE .STK-MED ONE Stop: 11/10/16 07:52 Phenylephrine HCl 1 mg/ Sodium (Chloride) 10.1 mls @ 1 mls/sec IV TITRATE [facility] Stop: 11/10/16 18:00 Sodium Chloride (Normal Saline) 1,000 mls @ 50 mls/hr IV ASDIRECTED [facility] Stop: 11/10/16 23:00 Last Admin: 11/10/16 17:13 Dose: 50 mls/hr Sodium Chloride (Normal Saline) 250 mls @ 999 mls/hr IV ASDIRECTED [facility] Stop: 11/11/16 09:01 Last Admin: 11/11/16 09:12 Dose: 999 mls/hr Iodine (Iodine 2% Mild Tincture) Confirm Administered Dose 30 ml .ROUTE .STK- MED ONE Stop: 11/10/16 08:22 Last Admin: 11/10/16 11:03 Dose: 18 ml Ketamine HCl (Ketalar) Confirm Administered Dose 500 mg .ROUTE .STK-MED ONE Stop: 11/10/16 07:54 Lidocaine/Sodium Bicarbonate (Buffered Lidocaine 1% In Ns 8.4%) 0.25 ml IV ONETIME PRN PRN Reason: Prior to IV Start Stop: 11/10/16 16:00 Last Admin: 11/10/16 08:49 Dose: 0.25 ml Midazolam HCl (Versed 1 Mg/Ml) Confirm Administered Dose 2 mg .ROUTE .STK-MED ONE Stop: 11/10/16 07:54 Naloxone HCl (Narcan) 0.1 mg IVPUSH Q5M PRN PRN Reason: Oversedation Stop: 11/10/16 12:16 Ondansetron HCl (Zofran) 4 mg IVPUSH ONETIME PRN PRN Reason: Nausea/Vomiting Stop: 11/10/16 18:00 Phenylephrine HCl (Phenylephrine In Ns 100 Mcg/Ml) Confirm Administered Dose 1 mg .ROUTE .STK-MED ONE Stop: 11/10/16 07:52 Pneumococcal 13-Valent Conj Vacc (Prevnar 13) 0.5 ml IM .ONCE ONE Stop: 11/09/16 12:21 Prochlorperazine Edisylate (Compazine) 5 mg IVPUSH Q6H [facility] Last Admin: 11/11/16 14:18 Dose: Not Given Propofol (Diprivan 20 Ml) Confirm Administered Dose 400 mg .ROUTE .STK-MED ONE Stop: 11/10/16 07:52 Tranexamic Acid (Cyklokapron) Confirm Administered Dose 1,000 mg .ROUTE .STK- MED ONE Stop: 11/10/16 08:22 Last Admin: 11/10/16 11:14 Dose: 1,000 mg Consult PN Assessment/Plan Procedures: Procedures COMPLETE CBC W/AUTO DIFF WBC (08/08/15) COMPREHEN METABOLIC PANEL (08/08/15) CT ABD & PELV W/CONTRAST (07/13/15) ECG MONIT/REPRT UP TO 48 HRS (09/04/15) ECG MONIT/REPRT UP TO 48 HRS (09/04/15) ELECTROCARDIOGRAM TRACING (08/08/15) EMERGENCY DEPT VISIT (08/08/15) ROUTINE VENIPUNCTURE (08/08/15) My Orders last 24 hours: My Active Orders 11/10/16 19:23 Communication Order [RC] ASDIRECTED 11/13/16 15:00 Remove Patch 0 ea TRDERM Q72H Plan: Agree with plan of care
[2016-11-11] MEDS: ceFAZolin 2 GM in Premix Bag 1 BAG IV SCH (08:07)
[2016-11-11] MEDS: Aspirin 325 MG Tab.EC PO SCH ×2 (08:07→20:54)
[2016-11-11] MEDS: Docusate Sodium 100 MG Cap PO SCH ×2 (08:08→20:54)
[2016-11-11] MEDS: Losartan 25 MG Tab PO SCH (08:08)
[2016-11-11] MEDS: Bisacodyl 5 MG Tab PO PRN (08:08)
[2016-11-11] MEDS: Calcium Carbonate/Vitamin D3 1500 MG-200 Units Tab PO SCH (08:08)
--- NOTE | 2016-11-11 08:38 | PCM48HPAN ---
Post Anesthesia Note - EVALUATION WITHIN 48HRS OF ANESTHETIC Vital Signs in Normal Range: Yes Patient Participated in Evaluation: Yes Respiratory Function Stable: Yes Airway Patent: Yes Cardiovascular Function Stable: Yes Hydration Status Stable: Yes Pain Control Satisfactory: Yes Nausea and Vomiting Control Satisfactory: Yes Mental Status Recovered: Yes - COMMENTS/OBSERVATIONS Free Text/Narrative:: Patient sitting up about to get ambulated to bathroom. Patient/family state pain control has been adequate. Some nausea/vomiting noted yesterday. (Zofran/ compazine/scopalamine patch noted) Nausea has been improving.
[2016-11-11] MEDS ORDERED: Sodium Chloride 0.9% 250 ML IV SCH (08:45)
[2016-11-12] MEDS: Acetaminophen/HYDROcodone 325-5 MG Tab PO PRN (01:37)
[2016-11-12] MEDS ORDERED: Acetaminophen 325 MG Tab PO PRN (06:23)
[2016-11-12] MEDS: Multivitamins,Therapeutic Tab PO SCH (06:42)
[2016-11-12] MEDS: Losartan 25 MG Tab PO SCH (08:48)
[2016-11-12] MEDS: Calcium Carbonate/Vitamin D3 1500 MG-200 Units Tab PO SCH (08:48)
[2016-11-12] MEDS: Aspirin 325 MG Tab.EC PO SCH (08:48)
[2016-11-12] MEDS: Docusate Sodium 100 MG Cap PO SCH (08:48)
[2016-11-12] MEDS ORDERED: Albuterol 0.083% 2.5 MG/3 ML Neb Soln NEB SCH (10:00)
[2016-11-12] MEDS ORDERED: Albuterol 0.083% 2.5 MG/3 ML Neb Soln NEB PRN (10:00)
[2016-11-12 11:58] VITALS: BP 114/84
[2016-11-12] MEDS: Bisacodyl 5 MG Tab PO PRN (12:26)
--- NOTE | 2016-11-19 22:31 | PCM.SURGPN ---
- General Info Date of Service: 11/12/16 Date of Surgery/Procedure: 11/10/16 POD#: 2 Functional Status: Reports: pain controlled, tolerating diet, ambulating, urinating, incentive spirometry - Review of Systems General: Reports: No Symptoms HEENT: Reports: no symptoms Pulmonary: Reports: no symptoms. Denies: shortness of breath Cardiovascular: Reports: No Symptoms. Denies: Chest Pain Gastrointestinal: Reports: No symptoms Genitourinary: Reports: no symptoms Musculoskeletal: Reports: no symptoms Skin: Reports: no symptoms Neurological: Reports: No Symptoms. Denies: Numbness, Tingling Psychiatric: Reports: no symptoms - Patient Data Vitals - most recent: Last Vital Signs Temp 36.9 C 11/12/16 11:50 Pulse 88 11/12/16 11:50 Resp 16 11/12/16 11:50 BP 114/84 11/12/16 10:08 Pulse Ox 97 11/12/16 11:50 Weight - most recent: 66.406 kg Lab Results last 24 hrs: Laboratory Last Values WBC 7.65 K/mm3 (3.98-10.04) 11/12/16 06:57 RBC 3.33 M/mm3 (3.98-5.22) L 11/12/16 06:57 Hgb 10.4 gm/L (11.2-15.7) L 11/12/16 06:57 Hct 33.0 % (34.1-44.9) L 11/12/16 06:57 MCV 99.1 fl (79.4-94.8) H 11/12/16 06:57 MCH 31.2 pg (25.6-32.2) 11/12/16 06:57 MCHC 31.5 g/dl (32.2-35.5) L 11/12/16 06:57 RDW Std Deviation 46.3 fL (36.4-46.3) 11/12/16 06:57 Plt Count 168 K/mm3 (182-369) L 11/12/16 06:57 MPV 10.9 fl (9.4-12.3) 11/12/16 06:57 Neut % (Auto) 76.7 % (34.0-71.1) H 11/12/16 06:57 Lymph % (Auto) 15.4 % (19.3-51.7) L 11/12/16 06:57 [place] % (Auto) 7.6 % (4.7-12.5) 11/12/16 06:57 Eos % (Auto) 0.1 (0.7-5.8) L 11/12/16 06:57 Baso % (Auto) 0.1 % (0.1-1.2) 11/12/16 06:57 Neut # (Auto) 5.86 K/mm3 (1.56-6.13) 11/12/16 06:57 Lymph # (Auto) 1.18 K/mm3 (1.18-3.74) 11/12/16 06:57 [place] # (Auto) 0.58 K/mm3 (0.24-0.36) H 11/12/16 06:57 Eos # (Auto) 0.01 K/mm3 (0.04-0.36) L 11/12/16 06:57 Baso # (Auto) 0.01 K/mm3 (0.01-0.08) 11/12/16 06:57 Sodium 140 mEq/L (136-145) 11/12/16 06:57 Potassium 4.5 mEq/L (3.5-5.1) 11/12/16 06:57 Chloride 106 mEq/L (98-107) 11/12/16 06:57 Carbon Dioxide 29 mEq/L (21-32) 11/12/16 06:57 Anion Gap 9.5 (5-15) 11/12/16 06:57 BUN 16 mg/dL (7-18) 11/12/16 06:57 Creatinine 1.0 mg/dL (0.55-1.02) 11/12/16 06:57 Est Cr Clr Drug Dosing 33.41 mL/min 11/12/16 06:57 Estimated GFR (MDRD) 53 mL/min (>60) 11/12/16 06:57 BUN/Creatinine Ratio 16.0 (14-18) 11/12/16 06:57 Glucose 107 mg/dL (83-115) 11/12/16 06:57 Calcium 8.6 mg/dL (8.5-10.1) 11/12/16 06:57 Med Orders - Current: Current Medications Discontinued Medications Acetaminophen (Tylenol) 650 mg PO Q6H PRN PRN Reason: Pain/Fever Last Admin: 11/12/16 09:21 Dose: 650 mg Hydrocodone Bitart/Acetaminophen ([place] 325-5 Mg) 1 - 2 tab PO Q4H PRN PRN Reason: Pain Last Admin: 11/12/16 01:37 Dose: 2 tab Albuterol (Proventil Neb Soln) 2.5 mg NEB QIDRT [facility] Albuterol (Proventil Neb Soln) 2.5 mg NEB QIDRT PRN PRN Reason: sob/wheezing Aspirin (Ecotrin) 325 mg PO BID [facility] Last Admin: 11/12/16 08:48 Dose: 325 mg Bisacodyl (Dulcolax) 5 mg PO DAILY PRN PRN Reason: Constipation Last Admin: 11/12/16 12:26 Dose: 5 mg Bupivacaine HCl (Marcaine 0.25%) Confirm Administered Dose 30 ml .ROUTE .STK- MED ONE Stop: 11/10/16 08:22 Last Admin: 11/10/16 11:10 Dose: 30 ml Calcium Carbonate (Calcium Carbonate/Vitamin D 1500 Mg-200 Unit) 1 tab PO DAILY [facility] Last Admin: 11/12/16 08:48 Dose: 1 tab Cefazolin Sodium (Ancef) Confirm Administered Dose 2 gm .ROUTE .STK-MED ONE Stop: 11/10/16 07:52 Cefazolin Sodium (Ancef) Confirm Administered Dose 2 gm .ROUTE .STK-MED ONE Stop: 11/10/16 08:22 Last Admin: 11/10/16 11:05 Dose: 2 gm Morphine Sulfate 8 mg/Epinephrine HCl 0.3 mg/Cefuroxime Sodium 750 mg/Ketorolac Tromethamine 30 mg/Sodium Chloride 27.9 ml 0 mg .XX ONETIME ONE Stop: 11/10/16 10:01 Last Admin: 11/10/16 17:00 Dose: Not Given Diphtheria/Tetanus/Acell Pertussis (Boostrix) 0.5 ml IM .ONCE ONE Stop: 11/09/16 12:20 Last Admin: 11/12/16 14:31 Dose: 0.5 ml Docusate Sodium (Colace) 100 mg PO BID [facility] Last Admin: 11/12/16 08:48 Dose: 100 mg Ephedrine Sulfate (Ephedrine Sulfate) 5 mg IVPUSH ASDIRECTED PRN PRN Reason: Hypotension Stop: 11/10/16 18:00 Ephedrine Sulfate (Ephedrine In Ns) Confirm Administered Dose 25 mg .ROUTE .STK- MED [facility] Stop: 11/10/16 11:14 Fentanyl (Sublimaze) Confirm Administered Dose 100 mcg .ROUTE .[facility] Stop: 11/10/16 07:54 Fentanyl (Sublimaze) 50 mcg IVPUSH Q5M PRN PRN Reason: Pain Stop: 11/10/16 11:56 Hydromorphone HCl (Dilaudid) 0.5 mg IVPUSH Q15M PRN PRN Reason: severe pain Stop: 11/10/16 11:56 Last Admin: 11/10/16 12:56 Dose: 0.5 mg Lactated Ringer's (Ringers, Lactated) 1,000 mls @ 125 mls/hr IV ASDIRECTED [facility] Last Admin: 11/10/16 08:50 Dose: 125 mls/hr Cefazolin Sodium/Dextrose 2 gm (/ Premix) 50 mls @ 100 mls/hr IV Q8H [facility] Stop: 11/11/16 08:29 Last Admin: 11/11/16 08:07 Dose: 100 mls/hr Lidocaine HCl (Xylocaine-Mpf 1%) Confirm Administered Dose 10 mls @ as directed .ROUTE .[facility] Stop: 11/10/16 07:52 Lactated Ringer's (Ringers, Lactated) Confirm Administered Dose 1,000 mls @ as directed .ROUTE .[facility] Stop: 11/10/16 07:52 Phenylephrine HCl 1 mg/ Sodium (Chloride) 10.1 mls @ 1 mls/sec IV TITRATE [facility] Stop: 11/10/16 18:00 Sodium Chloride (Normal Saline) 1,000 mls @ 50 mls/hr IV ASDIRECTED [facility] Stop: 11/10/16 23:00 Last Admin: 11/10/16 17:13 Dose: 50 mls/hr Sodium Chloride (Normal Saline) 250 mls @ 999 mls/hr IV ASDIRECTED [facility] Stop: 11/11/16 09:01 Last Admin: 11/11/16 09:12 Dose: 999 mls/hr Iodine (Iodine 2% Mild Tincture) Confirm Administered Dose 30 ml .ROUTE .STK- MED [facility] Stop: 11/10/16 08:22 Last Admin: 11/10/16 11:03 Dose: 18 ml Ketamine HCl (Ketalar) Confirm Administered Dose 500 mg .ROUTE .STK-MED ONE Stop: 11/10/16 07:54 Lidocaine/Sodium Bicarbonate (Buffered Lidocaine 1% In Ns 8.4%) 0.25 ml IV ONETIME PRN PRN Reason: Prior to IV Start Stop: 11/10/16 16:00 Last Admin: 11/10/16 08:49 Dose: 0.25 ml Losartan Potassium (Cozaar) 25 mg PO DAILY [facility] Last Admin: 11/12/16 08:48 Dose: 25 mg Magnesium Hydroxide (Milk Of Magnesia) 30 ml PO BID PRN PRN Reason: Constipation Midazolam HCl (Versed 1 Mg/Ml) Confirm Administered Dose 2 mg .ROUTE .STK-MED ONE Stop: 11/10/16 07:54 Miscellaneous Information (Remove Patch) 0 ea TRDERM Q72H [facility] Morphine Sulfate (Morphine) 1 mg IVPUSH Q2H PRN PRN Reason: Breakthrough pain Multivitamins (Thera) 1 each PO WITHBREAKFAST [facility] Last Admin: 11/12/16 06:42 Dose: 1 each Naloxone HCl (Narcan) 0.1 mg IVPUSH Q5M PRN PRN Reason: Oversedation Stop: 11/10/16 12:16 Ondansetron HCl (Zofran) 4 mg IVPUSH Q6H PRN PRN Reason: Nausea/Vomiting Last Admin: 11/10/16 13:35 Dose: 4 mg Ondansetron HCl (Zofran) 4 mg IVPUSH ONETIME PRN PRN Reason: Nausea/Vomiting Stop: 11/10/16 18:00 Melatonin 3 Mg 0 each PO BEDTIME PRN PRN Reason: Insomnia Phenylephrine HCl (Phenylephrine In Ns 100 Mcg/Ml) Confirm Administered Dose 1 mg .ROUTE .STK-MED ONE Stop: 11/10/16 07:52 Pneumococcal 13-Valent Conj Vacc (Prevnar 13) 0.5 ml IM .ONCE ONE Stop: 11/09/16 12:21 Last Admin: 11/12/16 14:32 Dose: 0.5 ml Prochlorperazine Edisylate (Compazine) 5 mg IVPUSH Q6H [facility] Last Admin: 11/11/16 14:18 Dose: Not Given Propofol (Diprivan 20 Ml) Confirm Administered Dose 400 mg .ROUTE .STK-MED ONE Stop: 11/10/16 07:52 Scopolamine (Transderm-Scop) 1.5 mg TRDERM Q72H [facility] Last Admin: 11/10/16 16:05 Dose: 1.5 mg Senna (Senna) 8.6 mg PO BID PRN PRN Reason: Constipation Last Admin: 11/12/16 12:26 Dose: 8.6 mg Sodium Chloride (Saline Flush) 10 ml FLUSH ASDIRECTED PRN PRN Reason: Keep Vein Open Tranexamic Acid (Cyklokapron) Confirm Administered Dose 1,000 mg .ROUTE .STK- MED ONE Stop: 11/10/16 08:22 Last Admin: 11/10/16 11:14 Dose: 1,000 mg - Exam Wound/Incisions: healing well, dressing dry and intact General: alert, oriented, no acute distress Extremities: normal pulses, no tenderness/swelling, no calf tenderness Neurological: strength equal bilateral, sensation intact Psy/Mental Status: alert, normal affect - Problem List & Annotations (1) S/P total knee arthroplasty SNOMED Code(s): 4634646650294, [id number], 9967113739900 Code(s): Z96.659 - PRESENCE OF UNSPECIFIED ARTIFICIAL KNEE JOINT Status: Acute Priority: High Qualifiers: Laterality: left Qualified Code(s): Z96.652 - Presence of left artificial knee joint - Problem List Review Problem List Initiated/Reviewed/Updated: Yes - Assessment Assessment (Free Text/Narrative):: 86yo F POD#2 s/p L. TKA, doing well. - Plan Plan (Free Text/Narrative):: 1. Continue ASA 325mg BID, ang hose, early ambulation. 2. PT will be continued at discharge. 3. Management of other issues per hospitalist services. 4. Discussed case with Dr. Serra who is in agreement.
--- NOTE | 2016-11-20 17:54 | PCM.SURGPN ---
- General Info Date of Service: 11/11/16 POD#: 1 Functional Status: Reports: pain controlled, tolerating diet, ambulating, urinating. Denies: new symptoms - Review of Systems Musculoskeletal: Reports: other (The pt is progressing with therapies.) - Patient Data Vitals - most recent: Last Vital Signs Temp 98.4 F 11/12/16 11:50 Pulse 88 11/12/16 11:50 Resp 16 11/12/16 11:50 BP 114/84 11/12/16 10:08 Pulse Ox 97 11/12/16 11:50 Weight - most recent: 146 lb 6.4 oz Med Orders - Current: Current Medications Discontinued Medications Acetaminophen (Tylenol) 650 mg PO Q6H PRN PRN Reason: Pain/Fever Last Admin: 11/12/16 09:21 Dose: 650 mg Hydrocodone Bitart/Acetaminophen ([place] 325-5 Mg) 1 - 2 tab PO Q4H PRN PRN Reason: Pain Last Admin: 11/12/16 01:37 Dose: 2 tab Albuterol (Proventil Neb Soln) 2.5 mg NEB QIDRT [facility] Albuterol (Proventil Neb Soln) 2.5 mg NEB QIDRT PRN PRN Reason: sob/wheezing Aspirin (Ecotrin) 325 mg PO BID [facility] Last Admin: 11/12/16 08:48 Dose: 325 mg Bisacodyl (Dulcolax) 5 mg PO DAILY PRN PRN Reason: Constipation Last Admin: 11/12/16 12:26 Dose: 5 mg Bupivacaine HCl (Marcaine 0.25%) Confirm Administered Dose 30 ml .ROUTE .STK- MED ONE Stop: 11/10/16 08:22 Last Admin: 11/10/16 11:10 Dose: 30 ml Calcium Carbonate (Calcium Carbonate/Vitamin D 1500 Mg-200 Unit) 1 tab PO DAILY [facility] Last Admin: 11/12/16 08:48 Dose: 1 tab Cefazolin Sodium (Ancef) Confirm Administered Dose 2 gm .ROUTE .STK-MED ONE Stop: 11/10/16 07:52 Cefazolin Sodium (Ancef) Confirm Administered Dose 2 gm .ROUTE .STK-MED ONE Stop: 11/10/16 08:22 Last Admin: 11/10/16 11:05 Dose: 2 gm Morphine Sulfate 8 mg/Epinephrine HCl 0.3 mg/Cefuroxime Sodium 750 mg/Ketorolac Tromethamine 30 mg/Sodium Chloride 27.9 ml 0 mg .XX ONETIME ONE Stop: 11/10/16 10:01 Last Admin: 11/10/16 17:00 Dose: Not Given Diphtheria/Tetanus/Acell Pertussis (Boostrix) 0.5 ml IM .ONCE ONE Stop: 11/09/16 12:20 Last Admin: 11/12/16 14:31 Dose: 0.5 ml Docusate Sodium (Colace) 100 mg PO BID [facility] Last Admin: 11/12/16 08:48 Dose: 100 mg Ephedrine Sulfate (Ephedrine Sulfate) 5 mg IVPUSH ASDIRECTED PRN PRN Reason: Hypotension Stop: 11/10/16 18:00 Ephedrine Sulfate (Ephedrine In Ns) Confirm Administered Dose 25 mg .ROUTE .STK- MED ONE Stop: 11/10/16 11:14 Fentanyl (Sublimaze) Confirm Administered Dose 100 mcg .ROUTE .STK-MED ONE Stop: 11/10/16 07:54 Fentanyl (Sublimaze) 50 mcg IVPUSH Q5M PRN PRN Reason: Pain Stop: 11/10/16 11:56 Hydromorphone HCl (Dilaudid) 0.5 mg IVPUSH Q15M PRN PRN Reason: severe pain Stop: 11/10/16 11:56 Last Admin: 11/10/16 12:56 Dose: 0.5 mg Lactated Ringer's (Ringers, Lactated) 1,000 mls @ 125 mls/hr IV ASDIRECTED [facility] Last Admin: 11/10/16 08:50 Dose: 125 mls/hr Cefazolin Sodium/Dextrose 2 gm (/ Premix) 50 mls @ 100 mls/hr IV Q8H [facility] Stop: 11/11/16 08:29 Last Admin: 11/11/16 08:07 Dose: 100 mls/hr Lidocaine HCl (Xylocaine-Mpf 1%) Confirm Administered Dose 10 mls @ as directed .ROUTE .STK-MED ONE Stop: 11/10/16 07:52 Lactated Ringer's (Ringers, Lactated) Confirm Administered Dose 1,000 mls @ as directed .ROUTE .STK-MED ONE Stop: 11/10/16 07:52 Phenylephrine HCl 1 mg/ Sodium (Chloride) 10.1 mls @ 1 mls/sec IV TITRATE [facility] Stop: 11/10/16 18:00 Sodium Chloride (Normal Saline) 1,000 mls @ 50 mls/hr IV ASDIRECTED [facility] Stop: 11/10/16 23:00 Last Admin: 11/10/16 17:13 Dose: 50 mls/hr Sodium Chloride (Normal Saline) 250 mls @ 999 mls/hr IV ASDIRECTED [facility] Stop: 11/11/16 09:01 Last Admin: 11/11/16 09:12 Dose: 999 mls/hr Iodine (Iodine 2% Mild Tincture) Confirm Administered Dose 30 ml .ROUTE .STK- MED ONE Stop: 11/10/16 08:22 Last Admin: 11/10/16 11:03 Dose: 18 ml Ketamine HCl (Ketalar) Confirm Administered Dose 500 mg .ROUTE .STK-MED ONE Stop: 11/10/16 07:54 Lidocaine/Sodium Bicarbonate (Buffered Lidocaine 1% In Ns 8.4%) 0.25 ml IV ONETIME PRN PRN Reason: Prior to IV Start Stop: 11/10/16 16:00 Last Admin: 11/10/16 08:49 Dose: 0.25 ml Losartan Potassium (Cozaar) 25 mg PO DAILY [facility] Last Admin: 11/12/16 08:48 Dose: 25 mg Magnesium Hydroxide (Milk Of Magnesia) 30 ml PO BID PRN PRN Reason: Constipation Midazolam HCl (Versed 1 Mg/Ml) Confirm Administered Dose 2 mg .ROUTE .STK-MED ONE Stop: 11/10/16 07:54 Miscellaneous Information (Remove Patch) 0 ea TRDERM Q72H [facility] Morphine Sulfate (Morphine) 1 mg IVPUSH Q2H PRN PRN Reason: Breakthrough pain Multivitamins (Thera) 1 each PO WITHBREAKFAST [facility] Last Admin: 11/12/16 06:42 Dose: 1 each Naloxone HCl (Narcan) 0.1 mg IVPUSH Q5M PRN PRN Reason: Oversedation Stop: 11/10/16 12:16 Ondansetron HCl (Zofran) 4 mg IVPUSH Q6H PRN PRN Reason: Nausea/Vomiting Last Admin: 11/10/16 13:35 Dose: 4 mg Ondansetron HCl (Zofran) 4 mg IVPUSH ONETIME PRN PRN Reason: Nausea/Vomiting Stop: 11/10/16 18:00 Melatonin 3 Mg 0 each PO BEDTIME PRN PRN Reason: Insomnia Phenylephrine HCl (Phenylephrine In Ns 100 Mcg/Ml) Confirm Administered Dose 1 mg .ROUTE .STK-MED ONE Stop: 11/10/16 07:52 Pneumococcal 13-Valent Conj Vacc (Prevnar 13) 0.5 ml IM .ONCE ONE Stop: 11/09/16 12:21 Last Admin: 11/12/16 14:32 Dose: 0.5 ml Prochlorperazine Edisylate (Compazine) 5 mg IVPUSH Q6H [facility] Last Admin: 11/11/16 14:18 Dose: Not Given Propofol (Diprivan 20 Ml) Confirm Administered Dose 400 mg .ROUTE .STK-MED ONE Stop: 11/10/16 07:52 Scopolamine (Transderm-Scop) 1.5 mg TRDERM Q72H [facility] Last Admin: 11/10/16 16:05 Dose: 1.5 mg Senna (Senna) 8.6 mg PO BID PRN PRN Reason: Constipation Last Admin: 11/12/16 12:26 Dose: 8.6 mg Sodium Chloride (Saline Flush) 10 ml FLUSH ASDIRECTED PRN PRN Reason: Keep Vein Open Tranexamic Acid (Cyklokapron) Confirm Administered Dose 1,000 mg .ROUTE .STK- MED ONE Stop: 11/10/16 08:22 Last Admin: 11/10/16 11:14 Dose: 1,000 mg - Exam Wound/Incisions: dressing dry and intact General: alert, cooperative, no acute distress Lungs: Normal respiratory effort Extremities: normal pulses, no calf tenderness, other (NVS intact for LLE. Yogesh's negative.) - Problem List Review Problem List Initiated/Reviewed/Updated: Yes - Assessment Assessment (Free Text/Narrative):: POD#1 - left TKA - Plan Plan (Free Text/Narrative):: 1. The pt will remain in Hospital for further monitoring and rehabilitation. 2. Continue with P.T. and O.T. 3. Hgb 11.8 today. 4. ASA 325mg BID, TEDs, SCDs, frequent mobility. The pt was examined by Dr. Serra today.
--- NOTE | 2016-11-20 17:56 | PCM.DCSUM1 ---
Discharge Summary - Hospital Course Brief History: Analia is an 86 yo female who underwent left TKA with Dr. Serra on 11-10-16. The procedure was completed under spinal anesthesia with MAC. The pt tolerated the procedure well and was admitted to the Medical-Surgical Unit. Medical management was provided by the Hospitalist service. The pt has history of aortic stenosis and fluid status was closely monitored. The pt's Hospital course was uneventful. The pt's Hgb on POD#1 was 11.8. On POD#1, 325mg ASA BID was initiated for VTE prophylaxis. A Mepilex dressing was placed at the incision site at the time of surgery and remained clean and dry. The pt participated in P.T. and O.T. and progressed well. The pt was allowed to WBAT. On POD#2, the pt was deemed appropriate to discharge to home with her . - Discharge Data Discharge Date: 11/12/16 Discharge Disposition: Home, Self-Care 01 Condition: Good - Patient Summary/Data Operative Procedure(s) Performed: left total knee arthroplasty Consults: Consultations 11/10/16 06:53 Consult to Case Management [CONS] Routine Consult to Physician [CONS] Routine OT Evaluation and Treatment [CONS] Routine 11/10/16 07:00 PT Evaluation and Treatment [CONS] Routine - Patient Instructions Diet: Usual Diet as Tolerated Activity: Apply Ice, As Tolerated, Elevate Extremity, Full Weight Bearing Driving: Do Not Drive Showering/Bathing: May Shower Wound/Incision Care: Keep Operative Site/Wound Site Clean and Dry, Do NOT Change Dressing Notify Provider of: Fever, Increased Pain, Swelling and Redness, Drainage, Nausea and/or Vomiting Other/Special Instructions: Please get up and moving around every hour while awake. This helps to prevent blood clots. Please take 325mg aspirin twice daily - this also helps to prevent blood clots. The medication is being used for blood clot prevention and not for pain control, so please use the medication twice daily as directed. Please wear the LAMAR hose during the day and remove them at night. Please schedule for P.T. Complete the P.T. exercises and stretches that were instructed in the Hospital. Please use the pain medication and muscle relaxant as needed. The medication may cause drowsiness and/or constipation. You could use a stool softener like docusate sodium or Colace 100mg twice daily and/or a laxative like polyethylene glycol or Miralax daily for constipation. Contact your primary care provider for further instructions if you are constipated. Please schedule an appointment with your primary care provider for 'routine post-op care'. Use the incentive spirometer often. Please place ice to the knee often. Please elevate the limb to decrease swelling. Keep the Mepilex dressing in place until follow-up. Please call [phone] with questions or concerns. - Discharge Plan Prescriptions/Med Rec: Acetaminophen/HYDROcodone [[place] 325-5 MG] 1 - 2 tab PO Q4H PRN #60 tablet PRN Reason: Pain Aspirin [Ecotrin] 325 mg PO BID #84 tab.ec Home Medications: Home Meds Ascorbate Calcium [Vitamin C] 500 mg PO DAILY 11/06/16 [History] Calcium Carbonate/Vitamin D3 [Calcium 500 + Vit D Caplet] 1 tab PO DAILY [History] Flaxseed Oil 1,000 mg PO DAILY 11/06/16 [History] Gluc 2KCl/Chondr/Kassy Hy/Hy Ac [Glucosamine & Chondroitin Cap] 1 cap PO DAILY [History] Losartan [Cozaar] 25 mg PO BID 11/06/16 [History] Melatonin 3 mg PO BEDTIME PRN 11/06/16 [History] Multivitamin [Multi-Vitamin Daily] 1 tab PO DAILY 11/06/16 [History] Vit C/Vit E Ac/Lut/Mineral 1 [Prosight with Lutein] 1 cap PO DAILY 11/06/16 [ History] Vitamin E 400 mg PO DAILY 11/06/16 [History] Acetaminophen [Tylenol] 650 mg PO Q6H PRN #0 tablet 11/12/16 [Rx] Acetaminophen/HYDROcodone [[place] 325-5 MG] 1 - 2 tab PO Q4H PRN #60 tablet 11/12 [Rx] Aspirin [Ecotrin] 325 mg PO BID #84 tab.ec 11/12/16 [Rx] Patient Handouts: Aortic Valve Stenosis, Total Knee Replacement, Care After, [id number], Total Knee Replacement, [id number], Hypertension, [id number], Aspirin, ASA oral tablets, Knee Rehabilitation Guidelines Following Surgery, Syncope, [id number] Referrals: July Copeland PA-C [Physician Sales Market Leader] - 11/18/16 9:15 am (Please see July Min on Thursday at 9:15 AM 11/18/16.) Eliud Ward MD [Primary Care Provider] - (Please see Dr. Ward at [facility] on Thursday at 1:45 PM 11/24/16.) - Patient Data Vitals - Most Recent: Last Vital Signs Temp 98.4 F 11/12/16 11:50 Pulse 88 11/12/16 11:50 Resp 16 11/12/16 11:50 BP 114/84 11/12/16 10:08 Pulse Ox 97 11/12/16 11:50 Weight - Most Recent: 146 lb 6.4 oz Med Orders - Current: Current Medications Discontinued Medications Acetaminophen (Tylenol) 650 mg PO Q6H PRN PRN Reason: Pain/Fever Last Admin: 11/12/16 09:21 Dose: 650 mg Hydrocodone Bitart/Acetaminophen ([place] 325-5 Mg) 1 - 2 tab PO Q4H PRN PRN Reason: Pain Last Admin: 11/12/16 01:37 Dose: 2 tab Albuterol (Proventil Neb Soln) 2.5 mg NEB QIDRT EMMA Albuterol (Proventil Neb Soln) 2.5 mg NEB QIDRT PRN PRN Reason: sob/wheezing Aspirin (Ecotrin) 325 mg PO BID [facility] Last Admin: 11/12/16 08:48 Dose: 325 mg Bisacodyl (Dulcolax) 5 mg PO DAILY PRN PRN Reason: Constipation Last Admin: 11/12/16 12:26 Dose: 5 mg Bupivacaine HCl (Marcaine 0.25%) Confirm Administered Dose 30 ml .ROUTE .STK- MED ONE Stop: 11/10/16 08:22 Last Admin: 11/10/16 11:10 Dose: 30 ml Calcium Carbonate (Calcium Carbonate/Vitamin D 1500 Mg-200 Unit) 1 tab PO DAILY [facility] Last Admin: 11/12/16 08:48 Dose: 1 tab Cefazolin Sodium (Ancef) Confirm Administered Dose 2 gm .ROUTE .STK-MED ONE Stop: 11/10/16 07:52 Cefazolin Sodium (Ancef) Confirm Administered Dose 2 gm .ROUTE .STK-MED ONE Stop: 11/10/16 08:22 Last Admin: 11/10/16 11:05 Dose: 2 gm Morphine Sulfate 8 mg/Epinephrine HCl 0.3 mg/Cefuroxime Sodium 750 mg/Ketorolac Tromethamine 30 mg/Sodium Chloride 27.9 ml 0 mg .XX ONETIME ONE Stop: 11/10/16 10:01 Last Admin: 11/10/16 17:00 Dose: Not Given Diphtheria/Tetanus/Acell Pertussis (Boostrix) 0.5 ml IM .ONCE ONE Stop: 11/09/16 12:20 Last Admin: 11/12/16 14:31 Dose: 0.5 ml Docusate Sodium (Colace) 100 mg PO BID EMMA Last Admin: 11/12/16 08:48 Dose: 100 mg Ephedrine Sulfate (Ephedrine Sulfate) 5 mg IVPUSH ASDIRECTED PRN PRN Reason: Hypotension Stop: 11/10/16 18:00 Ephedrine Sulfate (Ephedrine In Ns) Confirm Administered Dose 25 mg .ROUTE .STK- MED ONE Stop: 11/10/16 11:14 Fentanyl (Sublimaze) Confirm Administered Dose 100 mcg .ROUTE .STK-MED ONE Stop: 11/10/16 07:54 Fentanyl (Sublimaze) 50 mcg IVPUSH Q5M PRN PRN Reason: Pain Stop: 11/10/16 11:56 Hydromorphone HCl (Dilaudid) 0.5 mg IVPUSH Q15M PRN PRN Reason: severe pain Stop: 11/10/16 11:56 Last Admin: 11/10/16 12:56 Dose: 0.5 mg Lactated Ringer's (Ringers, Lactated) 1,000 mls @ 125 mls/hr IV ASDIRECTED EMMA Last Admin: 11/10/16 08:50 Dose: 125 mls/hr Cefazolin Sodium/Dextrose 2 gm (/ Premix) 50 mls @ 100 mls/hr IV Q8H EMMA Stop: 11/11/16 08:29 Last Admin: 11/11/16 08:07 Dose: 100 mls/hr Lidocaine HCl (Xylocaine-Mpf 1%) Confirm Administered Dose 10 mls @ as directed .ROUTE .STK-MED ONE Stop: 11/10/16 07:52 Lactated Ringer's (Ringers, Lactated) Confirm Administered Dose 1,000 mls @ as directed .ROUTE .STK-MED ONE Stop: 11/10/16 07:52 Phenylephrine HCl 1 mg/ Sodium (Chloride) 10.1 mls @ 1 mls/sec IV TITRATE [facility] Stop: 11/10/16 18:00 Sodium Chloride (Normal Saline) 1,000 mls @ 50 mls/hr IV ASDIRECTED [facility] Stop: 11/10/16 23:00 Last Admin: 11/10/16 17:13 Dose: 50 mls/hr Sodium Chloride (Normal Saline) 250 mls @ 999 mls/hr IV ASDIRECTED [facility] Stop: 11/11/16 09:01 Last Admin: 11/11/16 09:12 Dose: 999 mls/hr Iodine (Iodine 2% Mild Tincture) Confirm Administered Dose 30 ml .ROUTE .STK- MED ONE Stop: 11/10/16 08:22 Last Admin: 11/10/16 11:03 Dose: 18 ml Ketamine HCl (Ketalar) Confirm Administered Dose 500 mg .ROUTE .STK-MED ONE Stop: 11/10/16 07:54 Lidocaine/Sodium Bicarbonate (Buffered Lidocaine 1% In Ns 8.4%) 0.25 ml IV ONETIME PRN PRN Reason: Prior to IV Start Stop: 11/10/16 16:00 Last Admin: 11/10/16 08:49 Dose: 0.25 ml Losartan Potassium (Cozaar) 25 mg PO DAILY [facility] Last Admin: 11/12/16 08:48 Dose: 25 mg Magnesium Hydroxide (Milk Of Magnesia) 30 ml PO BID PRN PRN Reason: Constipation Midazolam HCl (Versed 1 Mg/Ml) Confirm Administered Dose 2 mg .ROUTE .STK-MED ONE Stop: 11/10/16 07:54 Miscellaneous Information (Remove Patch) 0 ea TRDERM Q72H [facility] Morphine Sulfate (Morphine) 1 mg IVPUSH Q2H PRN PRN Reason: Breakthrough pain Multivitamins (Thera) 1 each PO WITHBREAKFAST [facility] Last Admin: 11/12/16 06:42 Dose: 1 each Naloxone HCl (Narcan) 0.1 mg IVPUSH Q5M PRN PRN Reason: Oversedation Stop: 11/10/16 12:16 Ondansetron HCl (Zofran) 4 mg IVPUSH Q6H PRN PRN Reason: Nausea/Vomiting Last Admin: 11/10/16 13:35 Dose: 4 mg Ondansetron HCl (Zofran) 4 mg IVPUSH ONETIME PRN PRN Reason: Nausea/Vomiting Stop: 11/10/16 18:00 Melatonin 3 Mg 0 each PO BEDTIME PRN PRN Reason: Insomnia Phenylephrine HCl (Phenylephrine In Ns 100 Mcg/Ml) Confirm Administered Dose 1 mg .ROUTE .STK-MED ONE Stop: 11/10/16 07:52 Pneumococcal 13-Valent Conj Vacc (Prevnar 13) 0.5 ml IM .ONCE ONE Stop: 11/09/16 12:21 Last Admin: 11/12/16 14:32 Dose: 0.5 ml Prochlorperazine Edisylate (Compazine) 5 mg IVPUSH Q6H [facility] Last Admin: 11/11/16 14:18 Dose: Not Given Propofol (Diprivan 20 Ml) Confirm Administered Dose 400 mg .ROUTE .STK-MED ONE Stop: 11/10/16 07:52 Scopolamine (Transderm-Scop) 1.5 mg TRDERM Q72H [facility] Last Admin: 11/10/16 16:05 Dose: 1.5 mg Senna (Senna) 8.6 mg PO BID PRN PRN Reason: Constipation Last Admin: 11/12/16 12:26 Dose: 8.6 mg Sodium Chloride (Saline Flush) 10 ml FLUSH ASDIRECTED PRN PRN Reason: Keep Vein Open Tranexamic Acid (Cyklokapron) Confirm Administered Dose 1,000 mg .ROUTE .STK- MED ONE Stop: 11/10/16 08:22 Last Admin: 11/10/16 11:14 Dose: 1,000 mg *Q Meaningful Use (DIS) - VTE *Q VTE Criteria *Q: - Stroke *Q Stroke Criteria *Q: - AMI *Q AMI Criteria *Q:
== END 2016-11-12 15:10 | disposition home or self-care (01) | DRG 470 ==
LOC: JD.MS 07:58
PROVIDERS: ADMIT Orthopaedic Surgery; ATTEND Orthopaedic Surgery
PROC: 0SRD0J9 Replacement of Left Knee Joint with Synthetic Substitute, Cemented, Open Approach (ICD-10-PCS; principal; 2016-11-10)
DX: M17.12 Unilateral primary osteoarthritis, left knee (principal); I10 Essential (primary) hypertension; Z79.82 Long term (current) use of aspirin; Z79.899 Other long term (current) drug therapy; Z23 Encounter for immunization
CPT/HCPCS: 01402; 36415; 73560-26-LT; 73560-LT; 80048; 80053; 85025; 87641; 90471; 90670; 90715; 94762; 97110-GP; 97116-GP; 97161-GP; 97165-GO; 97530-GO; 97535-GO; A9270-GY; C1713; C1776; G0009; J0171; J0690; J0697; J0780; J1170; J1885; J2250; J2270; J2405; J2704; J3010; J3490; J7040; J7050; J7120

== ENCOUNTER 2019-12-29 14:46 | Emergency (ER) | payer MEDICARE, BC ==
--- NOTE | 2019-12-29 15:34 | EDM.PDOC ---
ED HPI GENERAL MEDICAL PROBLEM - General Chief Complaint: Upper Extremity Injury/Pain Stated Complaint: FALL (POSS BROKEN LEFT PINKY) Time Seen by Provider: 12/29/19 15:05 Source of Information: Reports: Patient, RN Notes Reviewed History Limitations: Reports: No Limitations - History of Present Illness INITIAL COMMENTS - FREE TEXT/NARRATIVE: Patient is an 89-year-old female who presents to the ED for evaluation of a left pinky injury. The patient states that she was at home, walking to her mailbox when she fell forward, and braced herself with her bilateral hands. She states that she had pain in her left pinky shortly after to the fall. Patient thinks that she had a loss of consciousness, but did come to right after the fall. She is not on any sort of blood thinners, and denies hitting her head at all. She further denies any sort of headache, nausea/vomiting/ diarrhea, or any recent illness. Patient states that she has had syncopal episodes in the past, she just had her blood pressure medications adjusted at around 1 month ago. Patient does relate that she was seen by her primary care provider 1 month ago, was told she had a UTI, she was treated with a few days with antibiotics, when she had an adverse reaction of sorts, and was told to DC the antibiotics, they did not start her on any other antibiotic for the UTI, but she was told to increase her oral fluid intake. Patient states she does forget to drink water at times, this has not really been increasing her oral fluid intake due to this. Regarding the patient's left pinky, does appear to be bruised and swollen, she is not able to move it much at all, noted right at the MCP joint. There are multiple skin abrasions noted to the palmar surfaces of both hands. Left Finger-Little Pain Score (Numeric/FACES): 3 - Related Data Allergies Allergy/AdvReac Type Severity Reaction Status Date / Time No Known Allergies Allergy Verified 12/29/19 15:05 Home Meds: Home Meds Ascorbate Calcium [Vitamin C] 500 mg PO DAILY 11/06/16 [History] Calcium Carbonate/Vitamin D3 [Calcium 500-Vit D3 125 Caplet] 1 tab PO DAILY [History] Flaxseed Oil 1,000 mg PO DAILY 11/06/16 [History] Glucosam/Chondr/Collagn/Hyalur [Glucosamine & Chondroitin Cap] 1 cap PO DAILY [History] Losartan [Cozaar] 25 mg PO BID 11/06/16 [History] Melatonin 3 mg PO BEDTIME PRN 11/06/16 [History] Multivitamin [Multi-Vitamin Daily] 1 tab PO DAILY 11/06/16 [History] Vit C/Vit E/Lutein/Minerals 1 [Prosight with Lutein] 1 cap PO DAILY 11/06/16 [ History] Vitamin E 400 mg PO DAILY 11/06/16 [History] Acetaminophen/HYDROcodone [[place] 325-5 MG] 1 tab PO Q6H PRN #12 tablet 12/29/19 [Rx] Aspirin [Low Dose Aspirin EC] 81 mg PO DAILY 12/29/19 [History] Ondansetron [Zofran ODT] 4 mg PO Q8H PRN #15 tab.dis 12/29/19 [Rx] Past Medical History HEENT History: Reports: Impaired Vision, Other (See Below) Other HEENT History: wears glasses Cardiovascular History: Reports: Heart Murmur, Hypertension Other Cardiovascular History: aortic stenosis Respiratory History: Reports: Other (See Below) Other Respiratory History: shortness of breath with activity Genitourinary History: Reports: Urinary Incontinence, Other (See Below) Other Genitourinary History: urgency SUPERVISOR ROVING History: Reports: , Other (See Below) Other SUPERVISOR ROVING History: 7 vaginal deliveries Musculoskeletal History: Reports: Osteoarthritis Neurological History: Reports: Concussion - Infectious Disease History Infectious Disease History: Reports: Chicken Pox - Past Surgical History HEENT Surgical History: Reports: Cataract Surgery, Other (See Below) GI Surgical History: Reports: Colonoscopy, EGD Musculoskeletal Surgical History: Reports: Other (See Below) Social & Family History - Family History Family Medical History: Noncontributory - Tobacco Use Smoking Status *Q: Never Smoker - Caffeine Use Caffeine Use: Reports: Tea - Recreational Drug Use Recreational Drug Use: No Review of Systems - Review of Systems Review Of Systems: Comprehensive ROS is negative, except as noted in HPI. ED EXAM, GENERAL - Physical Exam Exam: See Below Exam Limited By: No Limitations General Appearance: Alert, WD/WN, No Apparent Distress Eye Exam: Bilateral Eye: EOMI, Normal Inspection, PERRL Ears: Normal External Exam, Normal Canal, Hearing Grossly Normal, Normal TMs Nose: Normal Inspection Throat/Mouth: Normal Inspection, Normal Lips, Normal Teeth, Normal Gums, Normal Oropharynx, Normal Voice, No Airway Compromise Head: Atraumatic, Normocephalic Neck: Normal Inspection, Supple, Non-Tender, Full Range of Motion Respiratory/Chest: No Respiratory Distress, Lungs Clear, Normal Breath Sounds, No Accessory Muscle Use, Chest Non-Tender Cardiovascular: Normal Peripheral Pulses, Regular Rate, Rhythm, No Murmur Peripheral Pulses: 3+: Radial (L), Radial (R) Extremities: Normal Inspection (With exception of left pinky finger and skin abrasions.), Normal Range of Motion (Except left pinky finger), Normal Capillary Refill, Limited Range of Motion (of left pinky finger, patient is not able to move this much at all at MCP joint) Neurological: Alert, Oriented, Normal Cognition, No Motor/Sensory Deficits Psychiatric: Normal Affect, Normal Mood Skin Exam: Warm, Dry, Normal Color, No Rash, Wound/Incision (multiple non bleeding abrasions noted to bilateral hands) ED TRAUMA EXTREMITY PROCEDURES - Splinting Left Upper Extremity Splint Site: left arm Pre-Procedure NV Status: Normal Post-Procedure NV Status: Normal Splint Material: Fiberglass Splint Design: Gutter (ulnar gutter short arm) Applied & Form Fitted By: Provider, Nurse Provider Post-Splint Application NV Check: NV Status Normal, Good Position Complications: No EKG INTERPRETATION EKG Date: 12/29/19 Time: 14:11 Rhythm: NSR Rate (Beats/Min): 80 [place]: Normal P-Wave: Present QRS: Normal ST-T: Normal QT: Normal EKG Interpretation Comments: No obvious ischemia or acute ST changes noted, reviewed by myself and Dr. Veliz Course - Vital Signs Last Recorded V/S: Last Vital Signs Temp 97.0 F 12/29/19 14:58 Pulse 80 12/29/19 14:58 Resp 18 12/29/19 14:58 BP 188/75 H 12/29/19 14:58 Pulse Ox 96 12/29/19 14:58 - Orders/Labs/Meds Orders: Active Orders 24 hr Category Date Time Status EKG Documentation Completion [RC] STAT Care 12/29/19 15:56 Ordered Ondansetron [Zofran ODT] Med 12/29/19 15:59 Ordered 4 mg PO ONETIME PRN Medication Orders Ondansetron HCl (Zofran Odt) 4 mg PO ONETIME PRN PRN Reason: Nausea Last Admin: 12/29/19 16:10 Dose: 4 mg Labs: Laboratory Tests 12/29/19 12/29/19 12/29/19 Range/Units 15:45 15:45 16:10 WBC 6.43 (3.98-10.04) K/mm3 RBC 4.16 (3.98-5.22) M/mm3 Hgb 12.7 D (11.2-15.7) gm/dl Hct 39.9 (34.1-44.9) % MCV 95.9 H D (79.4-94.8) fl MCH 30.5 (25.6-32.2) pg MCHC 31.8 L (32.2-35.5) g/dl RDW Std Deviation 45.2 (36.4-46.3) fL Plt Count 219 (182-369) K/mm3 MPV 10.1 (9.4-12.3) fl Neut % (Auto) 60.3 (34.0-71.1) % Lymph % (Auto) 28.3 (19.3-51.7) % [place] % (Auto) 7.5 (4.7-12.5) % Eos % (Auto) 3.4 (0.7-5.8) Baso % (Auto) 0.5 (0.1-1.2) % Neut # (Auto) 3.88 (1.56-6.13) K/mm3 Lymph # (Auto) 1.82 (1.18-3.74) K/mm3 [place] # (Auto) 0.48 H (0.24-0.36) K/mm3 Eos # (Auto) 0.22 (0.04-0.36) K/mm3 Baso # (Auto) 0.03 (0.01-0.08) K/mm3 Sodium 141 (136-145) mEq/L Potassium 4.9 (3.5-5.1) mEq/L Chloride 105 (98-107) mEq/L Carbon Dioxide 29 (21-32) mEq/L Anion Gap 11.9 (5-15) BUN 30 H (7-18) mg/dL Creatinine 1.0 (0.55-1.02) mg/dL Est Cr Clr Drug Dosing 31.55 mL/min Estimated GFR (MDRD) 52 (>60) mL/min BUN/Creatinine Ratio 30.0 H (14-18) Glucose 103 (83-115) mg/dL Calcium 9.7 (8.5-10.1) mg/dL Total Bilirubin 0.4 (0.2-1.0) mg/dL AST 23 (15-37) U/L ALT 25 (14-59) U/L Alkaline Phosphatase 98 (46-116) U/L Total Protein 7.2 (6.4-8.2) g/dl Albumin 3.5 (3.4-5.0) g/dl Globulin 3.7 gm/dL Albumin/Globulin Ratio 1.0 (1-2) Urine Color Yellow (Yellow) Urine Appearance Clear (Clear) Urine pH 6.5 (5.0-8.0) Ur Specific [place] 1.025 (1.005-1.030) Urine Protein Negative (Negative) Urine Glucose (UA) Negative (Negative) Urine Ketones Negative (Negative) Urine Occult Blood Negative (Negative) Urine Nitrite Negative (Negative) Urine Bilirubin Negative (Negative) Urine Urobilinogen 0.2 (0.2-1.0) Ur Leukocyte Esterase Trace H (Negative) Urine RBC 0-5 (0-5) /hpf Urine WBC 0-5 (0-5) /hpf Ur Squamous Epith Cells 0-5 (0-5) /hpf Urine Bacteria Few (FEW) /hpf Urine Mucus Not seen (FEW) /hpf Meds: Medications Generic Name Dose Route Start Last Admin Trade Name Freq PRN Reason Stop Dose Admin Ondansetron HCl 4 mg 12/29/19 15:59 12/29/19 16:10 Zofran Odt PO 4 mg ONETIME PRN Administration Nausea Discontinued Medications Generic Name Dose Route Start Last Admin Trade Name Freq PRN Reason Stop Dose Admin Hydromorphone HCl 0.5 mg 12/29/19 15:59 12/29/19 16:10 Dilaudid IM 12/29/19 16:00 0.5 mg ONETIME ONE Administration - Re-Assessments/Exams Free Text/Narrative Re-Assessment/Exam: 12/29/19 15:33 Patient presents to the ED for evaluation of her left pinky injury. As she states she thinks she had a loss of consciousness prior to this, we will check some labs to make sure there is no metabolic disturbances causing issues. 12/29/19 15:44 X-rays do reveal a fracture of the proximal phalange he of the left pinky finger , does have angulation as well. We will contact Dr. Serra regarding pinning versus otherwise, labs are pending at this time. 12/29/19 15:58 Official radiology read is back, and demonstrates an angulated fracture involving the proximal shaft of the proximal phalanx of the left fifth finger. I was able to contact Dr. Serra and he did review the films, and states that this would likely benefit from pinning as this is her dominant hand as well. He states he would like to see her in the office on Thursday for fixation next week. I have ordered an EKG and chest x-ray for preop purposes regarding pending Ortho surgery. He did state to place her in an ulnar gutter splint in the interim. 12/29/19 16:46 Patient's laboratory evaluation is done, demonstrates no acute abnormalities, she is mildly dehydrated, but again she states that she does not really drink enough fluid on a regular basis. We will try to increase her oral fluid intake. Urinalysis also appears to be within normal limits no sign of a UTI at this time. Departure - Departure Time of Disposition: 16:01 Disposition: Home, Self-Care 01 Condition: Good Clinical Impression: Proximal phalanx fracture of finger Qualifiers: Encounter type: initial encounter Finger: little finger Fracture type: closed Fracture alignment: nondisplaced Laterality: left Qualified Code(s): S62.647A - Nondisplaced fracture of proximal phalanx of left little finger, initial encounter for closed fracture - Discharge Information *PRESCRIPTION DRUG MONITORING PROGRAM REVIEWED*: Yes *COPY OF PRESCRIPTION DRUG MONITORING REPORT IN PATIENT ANIKET: No Instructions: Finger Fracture, Adult, [id number] Referrals: Eliud Ward MD [Primary Care Provider] - Forms: ED Department Discharge Additional Instructions: You have been evaluated in the ED for your left pinky finger injury. Your x-ray demonstrated a fracture of your pinky finger on your left hand. Please use ice as tolerated to the affected area. You may take Tylenol 500 mg or ibuprofen 600mg q6 hrs for pain relief. Please do so until you have a tolerable level of pain with activity. Do not exceed 4000mg Tylenol, Do not exceed 3200mg ibuprofen in a 24 hour time period. You were given a prescription for a strong pain medication, hydrocodone/ acetaminophen 5/325, please take 1 tab every 6 hours as needed for pain not relieved by Tylenol or ibuprofen alone. Please note this does contain Tylenol in it, so do not take more than 4000 mg in a 24-hour time span. These medications can be addictive, so please take as few as possible to achieve adequate pain control. These meds can also be quite constipating, recommend that you increase your oral fluid intake and take a stool softener like MiraLAX while taking these medications. Please call Ortho for follow-up and further evaluation Dr. Serra is our orthopedic surgeon, his office number is [phone]. He was made aware of your visit to the ER today, and should be expecting to see you on Thursday, he would like to see you in his office on Thursday, for pinning of your finger next week. If you do not hear anything from his office by Thursday, please call the number given to you above and inquire about your appointment on Thursday. Please return to ED if your symptoms should change or worsen. Sepsis Event Note - Evaluation Sepsis Screening Result: No Definite Risk - Focused Exam Vital Signs: Vital Signs Temp Pulse Resp BP Pulse Ox 12/29/19 14:58 97.0 F 80 18 188/75 H 96 Date Exam was Performed: 12/29/19 Time Exam was Performed: 17:08 - My Orders Last 24 Hours: My Active Orders 12/29/19 15:56 EKG Documentation Completion [RC] STAT 12/29/19 15:59 Ondansetron [Zofran ODT] 4 mg PO ONETIME PRN - Assessment/Plan Last 24 Hours: My Active Orders 12/29/19 15:56 EKG Documentation Completion [RC] STAT 12/29/19 15:59 Ondansetron [Zofran ODT] 4 mg PO ONETIME PRN
--- NOTE | 2019-12-29 15:50 | CR ---
Left hand: 4 views of the left hand were obtained. Angulated fracture is identified within the proximal shaft of the proximal phalanx of the 5th digit. Joint space narrowing is scattered within the DIP and PIP joints. Lesser joint space narrowing is seen within the MCP joints. Severe degenerative change within the CMC joint of the thumb as well as off the distal navicular bone. Vascular calcification is seen. Bony structures are osteoporotic. Impression: 1. Angulated fracture involving the proximal shaft of the proximal phalanx of the left 5th finger. 2. Degenerative change and osteopenia. Diagnostic code #3 This report was dictated in MDT
[2019-12-29] MEDS ORDERED: Ondansetron 4 MG Tab.DIS PO PRN (15:59)
[2019-12-29] MEDS ORDERED: HYDROmorphone 0.5 MG/0.5 ML Syringe IM ONE (15:59)
--- NOTE | 2019-12-29 16:44 | CR ---
Chest: 2 views of the chest were obtained. Comparison: No previous chest imaging is available. Heart is slightly enlarged. Tortuous thoracic aorta is seen. Slight atelectasis or scarring is noted within the right lung base. No acute parenchymal changes otherwise seen within the lungs. Bony structures are osteopenic. Mild degenerative change is scattered within the spine with mild kyphosis. Diaphragm are slightly flattened on the lateral view suggesting emphysematous change. Impression: 1. Findings as noted above. 2. Nothing acute is appreciated. Diagnostic code #2 This report was dictated in MDT
[2019-12-29 17:53] VITALS: BP 122/52; PULSE 69
== END 2019-12-29 17:40 | disposition home or self-care (01) ==
LOC: JD.ED 14:46
DX: S62.647A Nondisplaced fracture of proximal phalanx of left little finger, initial encounter for closed fracture (principal); M19.90 Unspecified osteoarthritis, unspecified site; I10 Essential (primary) hypertension; Z79.82 Long term (current) use of aspirin; Z79.899 Other long term (current) drug therapy; W20.8XXA Other cause of strike by thrown, projected or falling object, initial encounter; Y92.009 Unspecified place in unspecified non-institutional (private) residence as the place of occurrence of the external cause
CPT/HCPCS: 29125; 36415; 71046; 73130; 80053; 81001; 85025; 93005; 96372; 99284; A9270; J1170

== ENCOUNTER 2020-01-05 09:06 | Day surgery (SDC) | payer MEDICARE, BC ==
[~2020-01-05 09:06] MED LIST changes: -Diphtheria,Pertussis(Acell),Tetanus Vaccine 0.5 ML SDV inactive IM ONE; -Ketamine 500 mg/10 ML MDV ONE; -Lactated Ringers 1,000 ML ONE; +Lidocaine 1% 4 ML ONE; +Lidocaine 1%/Sod Bicarbonate in NS 8.4% 1 ML Syringe IDERM PRN; -Lidocaine 1%/Sod Bicarbonate in NS 8.4% 1 ML Syringe IV PRN; -Midazolam 1 MG/ML 2 ML SDV ONE; -Ondansetron 4 MG/2 ML SDV IVPUSH PRN; -Phenylephrine/Normal Saline 100 MCG/ML 10 ML Syringe ONE; -Pneumococcal 13-Valent Conjugate Vaccine 0.5 ML Syringe IM ONE; -ceFAZolin 1 GM Vial ONE
[2020-01-05] MEDS ORDERED: ceFAZolin 1 GM Vial ONE (09:12)
[2020-01-05] MEDS ORDERED: Bupivacaine 0.25% 10 ML SDV ONE (09:16)
--- NOTE | 2020-01-05 09:22 | PCM.PREANE ---
Preanesthetic Assessment - Procedure Proposed Procedure: left small finger - Anesthesia/Transfusion/Family Hx Anesthesia History: Prior Anesthesia Without Reaction Family History of Anesthesia Reaction: No Transfusion History: No Prior Transfusion(s) - Review of Systems General: No Symptoms Pulmonary: No Symptoms Cardiovascular: No Symptoms Gastrointestinal: Constipation (since on meds) Neurological: No Symptoms Other: Reports: None - Physical Assessment NPO Status Date: 01/04/20 NPO Status Time: 18:00 Vital Signs: 98.4 96% 76 182/74 Height: 5 ft 3 in Weight: 64.637 kg ASA Class: 3 Mental Status: Alert & Oriented x3 Airway Class: Mallampati = 2 Dentition: Reports: Normal Dentition Thyro-Mental Finger Breadths: 3 Mouth Opening Finger Breadths: 3 ROM/Head Extension: Full Lungs: Clear to Auscultation, Normal Respiratory Effort Cardiovascular: Regular Rate, Regular Rhythm - Lab Values: Laboratory Last Values SARS Virus RNA (PCR) Negative (NEGATIVE) 01/04/20 09:53 MRSA (PCR) Negative 01/03/20 15:41 - Allergies Allergies/Adverse Reactions: Allergies Allergy/AdvReac Type Severity Reaction Status Date / Time No Known Allergies Allergy Verified 12/29/19 15:05 - Blood Blood Available: No - Acknowledgements Anesthesia Type Planned: MAC Pt an Appropriate Candidate for the Planned Anesthesia: Yes Alternatives and Risks of Anesthesia Discussed w Pt/Guardian: Yes Pt/Guardian Understands and Agrees with Anesthesia Plan: Yes PreAnesthesia Questionnaire HEENT History: Reports: Impaired Vision, Other (See Below) Other HEENT History: wears glasses Cardiovascular History: Reports: Heart Murmur, Hypertension Other Cardiovascular History: aortic stenosis Respiratory History: Reports: Other (See Below) Other Respiratory History: shortness of breath with activity Gastrointestinal History: Reports: None Genitourinary History: Reports: Urinary Incontinence, Other (See Below) Other Genitourinary History: urgency 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: , Other (See Below) Other OB/BYN History: 7 vaginal deliveries Musculoskeletal History: Reports: Osteoarthritis Neurological History: Reports: Concussion Psychiatric History: Reports: None Endocrine/Metabolic History: Reports: None Hematologic History: Reports: None Immunologic History: Reports: None Oncologic (Cancer) History: Reports: None Dermatologic History: Reports: None - Infectious Disease History Infectious Disease History: Reports: Chicken Pox - Past Surgical History HEENT Surgical History: Reports: Cataract Surgery, Other (See Below) GI Surgical History: Reports: Colonoscopy, EGD Musculoskeletal Surgical History: Reports: Knee Replacement, Other (See Below) - SUBSTANCE USE Smoking Status *Q: Never Smoker Tobacco Use Within Last Twelve Months: No Second Hand Smoke Exposure: No Days Per Week of Alcohol Use: 0 Recreational Drug Use History: No - HOME MEDS Home Medications: Home Meds Ascorbate Calcium [Vitamin C] 500 mg PO DAILY 11/06/16 [History] Calcium Carbonate/Vitamin D3 [Calcium 500-Vit D3 125 Caplet] 1 tab PO DAILY [History] Flaxseed Oil 1,000 mg PO DAILY 11/06/16 [History] Glucosam/Chondr/Collagn/Hyalur [Glucosamine & Chondroitin Cap] 1 cap PO DAILY [History] Losartan [Cozaar] 25 mg PO BID 11/06/16 [History] Melatonin 3 mg PO BEDTIME PRN 11/06/16 [History] Multivitamin [Multi-Vitamin Daily] 1 tab PO DAILY 11/06/16 [History] Vit C/Vit E/Lutein/Minerals 1 [Prosight with Lutein] 1 cap PO DAILY 11/06/16 [ History] Vitamin E 400 mg PO DAILY 11/06/16 [History] Aspirin [Low Dose Aspirin EC] 81 mg PO DAILY 12/29/19 [History] Ondansetron [Zofran ODT] 4 mg PO Q8H PRN #15 tab.dis 12/29/19 [Rx] Acetaminophen/HYDROcodone [[place] 325-5 MG] 1 - 2 tab PO Q6H PRN #20 tablet 01/04 [Rx] - CURRENT (IN HOUSE) MEDS Current Meds: Current Medications Lactated Ringer's (Ringers, Lactated) 1,000 mls @ 125 mls/hr IV ASDIRECTED EMMA Stop: 01/05/20 23:00 Lidocaine/Sodium Bicarbonate (Buffered Lidocaine 1% In Ns 8.4%) 0.25 ml IDERM ONETIME PRN PRN Reason: Prior to IV Start Stop: 01/05/20 18:00 Sodium Chloride (Saline Flush) 10 ml FLUSH ASDIRECTED PRN PRN Reason: Keep Vein Open Stop: 01/05/20 18:00 Discontinued Medications Cefazolin Sodium (Ancef) Confirm Administered Dose 2 gm .ROUTE .STK-MED ONE Stop: 01/05/20 09:13 Fentanyl (Sublimaze) Confirm Administered Dose 100 mcg .ROUTE .STK-MED ONE Stop: 01/05/20 08:36 Lidocaine HCl (Xylocaine-Mpf 1%) Confirm Administered Dose 4 mls @ as directed .ROUTE .STK-MED ONE Stop: 01/05/20 08:36 Propofol (Diprivan 20 Ml) Confirm Administered Dose 200 mg .ROUTE .STK-MED ONE Stop: 01/05/20 08:36
[2020-01-05] MEDS ORDERED: Lidocaine 1% 30 ML SDV ONE (10:33)
[2020-01-05] MEDS ORDERED: Propofol 200 MG/20 ML SDV ONE (10:37)
--- NOTE | 2020-01-05 11:06 | PCM48HPAN ---
Post Anesthesia Note - EVALUATION WITHIN 48HRS OF ANESTHETIC Vital Signs in Normal Range: Yes Patient Participated in Evaluation: Yes Respiratory Function Stable: Yes Airway Patent: Yes Cardiovascular Function Stable: Yes Hydration Status Stable: Yes Pain Control Satisfactory: Yes Nausea and Vomiting Control Satisfactory: Yes Mental Status Recovered: Yes Vital Signs: Last Vital Signs Temp 98.4 F 01/05/20 09:05 Pulse 76 01/05/20 09:05 Resp 16 01/05/20 09:05 BP 182/74 H 01/05/20 09:05 Pulse Ox 97 01/05/20 09:05 1101 69 16 97.8 150/56 93% - COMMENTS/OBSERVATIONS Free Text/Narrative:: denies pain
--- NOTE | 2020-01-05 11:15 | CR ---
Left 5th finger: 6 fluoroscopic spot views were obtained of the left 5th finger utilizing C-arm device. Study shows fracture within the proximal phalanx. Fracture shows fixation with 2 pins. Fluoroscopy time given as 47.4 seconds. Impression: 1. Procedural study as noted above. Diagnostic code #2 This report was dictated in MDT
--- NOTE | 2020-01-05 11:40 | PCM.OPNOTE ---
- General Post-Op/Procedure Note Date of Surgery/Procedure: 01/05/20 Operative Procedure(s): closed reduction with percutaneous pinning of left fifth proximal phalanx Pre Op Diagnosis: left small finger proximal phalanx fracture Post-Op Diagnosis: Same Anesthesia Technique: Local, MAC Primary Surgeon: Leif Serra Anesthesia Provider: Cindy Beltran Site Inspector: July Copeland EBL in mLs: 5 Complications: None Condition: Good
[2020-01-05 12:33] VITALS: BP 145/52; PULSE 68
--- NOTE | 2020-01-12 16:51 | OR ---
DATE OF OPERATION: 01/05/2020 SURGEON: Leif Serra MD OPERATION PERFORMED: Closed reduction and percutaneous pinning, left 5th proximal phalanx. PREOPERATIVE DIAGNOSIS: Left small finger proximal phalanx fracture. POSTOPERATIVE DIAGNOSIS: Left small finger proximal phalanx fracture. ANESTHESIA: Local MAC. ANESTHESIA PROVIDER: Cindy Beltran CRNA. GOLD BUYER: July Copeland PA-C. ESTIMATED BLOOD LOSS: Less than 5 mL. COMPLICATIONS: None. CONDITION: Stable. DESCRIPTION OF PROCEDURE: The patient was identified in the preoperative holding area. Proper site was marked and identified by the surgeon. The patient was taken back to the operative theater where after adequate anesthesia, the patient's left upper extremity was sterilely prepped and draped in usual sterile fashion. OR time- out was performed. The patient received 2 g IV Ancef. At this time, C-arm fluoroscopy showed it to be significantly displaced. Closed reduction maneuver was done, and then two 0.032 K-wires were then placed in retrograde fashion across the fracture site. It was found to have anatomic alignment in both AP and lateral views utilizing C-arm fluoroscopy throughout the procedure. Once it was found to be adequately reduced, pins were then bent and cut. The patient was placed in an ulnar gutter splint and a sterile soft dressing and sent to PACU in stable condition. MMODAL /[id number]
== END 2020-01-05 12:08 | disposition home or self-care (01) ==
LOC: JD.SDS 09:06
PROVIDERS: ATTEND Orthopaedic Surgery
DX: S62.617A Displaced fracture of proximal phalanx of left little finger, initial encounter for closed fracture (principal); I10 Essential (primary) hypertension; Z11.59 Encounter for screening for other viral diseases; Z79.82 Long term (current) use of aspirin; Z79.899 Other long term (current) drug therapy; X58.XXXA Exposure to other specified factors, initial encounter
CPT/HCPCS: 26727; 76000; 87641; C1713; J0690; J2001; J2704; J3010; J3490; J7120; U0002; 01820